=== PATIENT | male | born 1960 | race Caucasian/White ===

== ENCOUNTER 2016-12-09 07:37 | Emergency (ER) | payer SELFPAY ==
[~2016-12-09] VITALS: Ht 177.8 cm; Wt 75.0 kg
[~2016-12-09 07:37] MED LIST: OXYC-360 PO; Z.0.NO CURRENT MEDS
[2016-12-09 07:39] VITALS: BP 119/74; PULSE 77; RESP 20; TEMP 97.4; O2SAT 95
[2016-12-09] MEDS ORDERED: MEDR4PAK PO (07:53)
[2016-12-09] MEDS ORDERED: IBUP800T23 PO (07:53)
--- NOTE | 2016-12-09 07:54 | PD ---
HPI Chief Complaint: Pain: Acute or Chronic Time Seen by Provider: 07:52 Travel History International Travel<30 days: No Contact w/Intl Traveler<30days: No Traveled to known affect area: No History of Present Illness HPI 56-year-old male presents to the emergency Department with complaint of left elbow pain and swelling times one week. Denies injury. 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 Denies paresthesias, loss of sensation, decreased range of motion, decreased strength to the affected extremity. Denies fever, vomiting. Does not take any medications or tried any treatments to relieve the symptoms. Allergies to Vicodin. Has no other medical complaints. No other modifying factors or associated signs and symptoms. PFSH Past Medical History Arthritis: No Asthma: No Autoimmune Disease: No Blood Disorders: No Heart Rhythm Problems: No Cancer: No Cardiovascular Problems: No High Cholesterol: No Chemotherapy: No Chest Pain: No Congestive Heart Failure: No COPD: No Cerebrovascular Accident: Yes Diabetes: No Diminished Hearing: No Endocrine: No Gastrointestinal Disorders: Yes (BLEEDING ULCERS ) GERD: Yes Glaucoma: No Genitourinary: No Headaches: No Hepatitis: No Hiatal Hernia: No Hypertension: No Immune Disorder: No Inguinal Hernia: Yes Implanted Vascular Access Dvce: No Kidney Stones: No Musculoskeletal: No Neurologic: No Psychiatric: No Reproductive: No Respiratory: No Migraines: No Myocardial Infarction: No Radiation Therapy: No Renal Failure: No Seizures: No Sickle Cell Disease: No Sleep Apnea: No Thyroid Disease: No Ulcer: Yes Past Surgical History Abdominal Surgery: Yes (colon resection) AICD: No Appendectomy: Yes Arteriovenous Shunt: No Cholecystectomy: No Ear Surgery: No Endocrine Surgery: No Eye Surgery: No Genitourinary Surgery: Yes (COLON RESECTION ABOUT ONE YEAR AGO) Gynecologic Surgery: No Insulin Pump: No Joint Replacement: No Pacemaker: No Tonsillectomy: Yes Other Surgery: Yes (NODULES REMOVED FROM VOCAL CORDS) Social History Alcohol Use: Yes (3 beers daily) Tobacco Use: Yes (1 ppd) Substance Use: Yes (MARIJUANA) Allergies-Medications (Allergen,Severity, Reaction): Coded Allergies: Vicodin (Verified Allergy, Severe, HYPOTENSION, 12/09/16) Reported Meds & Prescriptions Reported Meds & Active Scripts Active Medrol Dosepak (Methylprednisolone) 4 Mg Dspk 4 Mg PO DIRECTED Per Pharmacist direction Ibuprofen 800 Mg Tab 800 Mg PO Q6HR PRN Review of Systems Except as stated in HPI: all other systems reviewed are Neg Physical Exam Narrative GENERAL: Well-nourished, well-developed male patient, in no acute distress; afebrile, nontoxic-appearing SKIN: Warm and dry. HEAD: Atraumatic. Normocephalic. EYES: Pupils equal and round. No scleral icterus. No injection or drainage. ENT: Mucosa pink and moist. Airway patent. NECK: Trachea midline. CARDIOVASCULAR: Regular rate. RESPIRATORY: No accessory muscle use. GASTROINTESTINAL: Flat. MUSCULOSKELETAL: Left elbow with full range of motion; with edema to the olecranon area; without erythema or warmth to touch; with tenderness on palpation; with full feeder operator automatic strength; sensory intact; 2+ radial pulse. No signs of septic joint. Left Upper extremity supple and nontense with 2+ radial pulse and sensory intact. No obvious deformities. No clubbing. No cyanosis. No edema. NEUROLOGICAL: Awake and alert. Oriented 3. No obvious cranial nerve deficits. Motor grossly within normal limits. Normal speech. PSYCHIATRIC: Appropriate mood and affect; insight and judgment normal. Data Data Last Documented VS Vital Signs Date Time Temp Pulse Resp B/P Pulse Ox O2 Delivery O2 Flow Rate FiO2 12/09/16 07:39 97.4 77 20 119/74 95 Room Air [facility] Medical Decision Making Medical Screen Exam Complete: Yes Emergency Medical Condition: Yes Medical Record Reviewed: Yes Differential Diagnosis Olecranon bursitis, contusion, elbow injury Narrative Course 56-year-old male physical examination consistent with olecranon bursitis of the left elbow. Patient is afebrile and nontoxic-appearing. Denies injury to the elbow. Denies fever, vomiting. Left upper extremity is with full range of motion. No signs of septic joint. Left elbow is without erythema or warmth to touch. Ibuprofen and Medrol Dosepak prescribed for home. Instructed patient to follow up with orthopedics. Provided patient with [employer]™ Interactive information sheet. Instructed patient to follow up with primary care provider. Patient verbalizes understanding and agreement with treatment plan. Patient is medically cleared and stable for discharge. Discussed reasons to return to the emergency department. Patient agrees with treatment plan. The patients vital signs are stable and the patient is stable for outpatient follow-up and treatment. Patient discharged home, stable and in no acute distress. Diagnosis Primary Impression: Bursitis of left elbow Qualified Code: M70.32 - Bursitis of left elbow, unspecified bursa Referrals: [facility] Orthopedist Primary Care Physician Patient Instructions: Elbow Bursitis (ED), General Instructions Additional Instructions: Ibuprofen or Tylenol as directed and as needed for pain and inflammation Apply ice to affected area Avoid elbow pressure by not leaning or placing your weight on your elbow to rise from a lying or sitting position Follow-up with primary care provider Follow-up with orthopedic Return to the emergency department immediately with worsening of symptoms Med/Other Pt SpecificInfo: Prescription(s) given Scripts Methylprednisolone Dosepak (Medrol Dosepak)4 Mg Dspk4 Mg PO DIRECTED #1 DSPK Ref 0 Per Pharmacist direction Prov:Shwetha Mccarthy 12/09/16 Ibuprofen 800 Mg [id number] Mg PO Q6HR PRN (PAIN) #30 TAB Ref 0 Prov:Shwetha Mccarthy 12/09/16 Disposition: 01 DISCHARGE HOME Condition: Stable Shwetha Mccarthy Dec 09, 2016 07:54
== END 2016-12-09 07:59 | disposition home or self-care (01) ==
LOC: NEPK 07:37
DX: M70.32 Other bursitis of elbow, left elbow (principal); K21.9 Gastro-esophageal reflux disease without esophagitis; Z87.11 Personal history of peptic ulcer disease; Z90.49 Acquired absence of other specified parts of digestive tract; F17.200 Nicotine dependence, unspecified, uncomplicated; F12.90 Cannabis use, unspecified, uncomplicated
CPT/HCPCS: 99283

== ENCOUNTER 2017-02-01 21:16 | Emergency (ER) | payer SELFPAY ==
[~2017-02-01] VITALS: Ht 177.8 cm; Wt 73.5 kg
[~2017-02-01 21:16] MED LIST changes: +IBUP800T23 PO; +MEDR4PAK PO; -OXYC-360 PO; -Z.0.NO CURRENT MEDS
[2017-02-01 21:20] VITALS: BP 158/87; PULSE 66; RESP 18; TEMP 98.2; O2SAT 100
[2017-02-01] MEDS ORDERED: ONDANSETRON HCL 4 MG/2 ML VIAL IVP ONE (23:45)
[2017-02-01] MEDS ORDERED: SODIUM CHLORIDE 0.9% FLUSH 10 ML FLUSH IV FLUSH PRN (23:45)
[2017-02-01] MEDS: SODIUM CHLOR 0.9% 1000 ML INJ 1,000 ML IV SCH (23:52)
--- NOTE | 2017-02-01 23:53 | PD ---
HPI Chief Complaint: Cold / Flu Symptoms Time Seen by Provider: 23:31 Travel History International Travel<30 days: No Contact w/Intl Traveler<30days: No Traveled to known affect area: No History of Present Illness HPI 56yo M with PMH of duodenal ulcer presents to the ED with c/o nausea and vomiting for 2 days. States he then started having burning in bilateral lower backs that is nonradiating. Said he had some brown vomit but last one was clear. Pt felt dizzy when he stands from lying down but not when he lies down. Denies any fever, chest pain, sob, abdominal pain, urinary complaints, focal weakness or numbness. PFSH Past Medical History Arthritis: No Asthma: No Autoimmune Disease: No Blood Disorders: No Heart Rhythm Problems: No Cancer: No Cardiovascular Problems: No High Cholesterol: No Chemotherapy: No Chest Pain: No Congestive Heart Failure: No COPD: No Cerebrovascular Accident: Yes Diabetes: No Diminished Hearing: No Endocrine: No Gastrointestinal Disorders: Yes (BLEEDING ULCERS ) GERD: Yes Glaucoma: No Genitourinary: No Headaches: No Hepatitis: No Hiatal Hernia: No Hypertension: No Immune Disorder: No Inguinal Hernia: Yes Implanted Vascular Access Dvce: No Kidney Stones: No Musculoskeletal: No Neurologic: No Psychiatric: No Reproductive: No Respiratory: No Migraines: No Myocardial Infarction: No Radiation Therapy: No Renal Failure: No Seizures: No Sickle Cell Disease: No Sleep Apnea: No Thyroid Disease: No Ulcer: Yes Tetanus Vaccination: Unknown Past Surgical History Abdominal Surgery: Yes (colon resection) AICD: No Appendectomy: Yes Arteriovenous Shunt: No Cholecystectomy: No Ear Surgery: No Endocrine Surgery: No Eye Surgery: No Genitourinary Surgery: Yes (COLON RESECTION ABOUT ONE YEAR AGO) Gynecologic Surgery: No Insulin Pump: No Joint Replacement: No Pacemaker: No Tonsillectomy: Yes Other Surgery: Yes (NODULES REMOVED FROM VOCAL CORDS) Social History Alcohol Use: Yes (3 beers daily) Tobacco Use: Yes (1 ppd) Substance Use: Yes (MARIJUANA) Allergies-Medications (Allergen,Severity, Reaction): Coded Allergies: acetaminophen (Unverified Allergy, Severe, HYPOTENSION, 02/01/17) hydrocodone (Unverified Allergy, Severe, HYPOTENSION, 02/01/17) Reported Meds & Prescriptions Reported Meds & Active Scripts Active Review of Systems Except as stated in HPI: all other systems reviewed are Neg Physical Exam Narrative GEN: 56yo M in mild distress. SKIN: Warm and dry. HEAD: Normocephalic, atraumatic. NECK: Trachea midline. No JVD. CV: S1, S2. Lungs: CTA B/L, equal breath sounds. Abd: soft, Very mild epigastric ttp. No rebound tenderness or guarding. BACK: No midline ttp. Mild bilateral paraspinal L5 ttp. EXT: Negative straight leg raise. No edema. Data Data Last Documented VS Vital Signs Date Time Temp Pulse Resp B/P (MAP) Pulse Ox O2 Delivery O2 Flow Rate FiO2 02/02/17 02:42 02/02/17 02:34 82 16 80 18 18 02/01/17 21:20 98.2 100 Room Air Orders Orders Complete Blood Count With Diff (02/01/17 23:38) Comprehensive Metabolic Panel (02/01/17 23:38) Lipase (02/01/17 23:38) Urinalysis - C+S If Indicated (02/01/17 23:38) Ondansetron Inj (Zofran Inj) (02/01/17 23:45) Sodium Chlor 0.9% 1000 Ml Inj (Ns 1000 M (02/01/17 23:38) Sodium Chloride 0.9% Flush (Ns Flush) (02/01/17 23:45) Chest, Single Ap (02/01/17 ) Prothrombin Time / Inr (Pt) (02/01/17 23:40) Act Partial Throm Time (Ptt) (02/01/17 23:40) Type And Screen (02/01/17 23:40) Orthostatic Vital Signs (02/01/17 23:53) Ketorolac Inj (Toradol Inj) (02/02/17 01:30) Labs Laboratory Tests Test 02/01/17 23:51 White Blood Count 10.1 TH/MM3 Red Blood Count 5.09 MIL/MM3 Hemoglobin 16.1 GM/DL Hematocrit 48.1 % Mean Corpuscular Volume 94.5 FL Mean Corpuscular Hemoglobin 31.6 PG Mean Corpuscular Hemoglobin Concent 33.4 % Red Cell Distribution Width 13.4 % Platelet Count 273 TH/MM3 Mean Platelet Volume 9.4 FL Neutrophils (%) (Auto) 87.6 % Lymphocytes (%) (Auto) 7.0 % Monocytes (%) (Auto) 5.1 % Eosinophils (%) (Auto) 0.0 % Basophils (%) (Auto) 0.3 % Neutrophils # (Auto) 8.9 TH/MM3 Lymphocytes # (Auto) 0.7 TH/MM3 Monocytes # (Auto) 0.5 TH/MM3 Eosinophils # (Auto) 0.0 TH/MM3 Basophils # (Auto) 0.0 TH/MM3 CBC Comment DIFF FINAL Differential Comment Prothrombin Time 11.4 SEC Prothromb Time International Ratio 1.0 RATIO Activated Partial Thromboplast Time 27.5 SEC Urine Color YELLOW Urine Turbidity CLEAR Urine pH 7.0 Urine Specific [place] 1.030 Urine Protein 100 mg/dL Urine Glucose (UA) NEG mg/dL Urine Ketones 150 mg/dL Urine Occult Blood NEG Urine Nitrite NEG Urine Bilirubin NEG Urine Urobilinogen 4.0 MG/DL Urine Leukocyte Esterase NEG Urine RBC 2 /hpf Urine WBC 1 /hpf Urine Squamous Epithelial Cells <1 /hpf Urine Mucus FEW /lpf Microscopic Urinalysis Comment CULT NOT INDICATED Blood Urea Nitrogen 11 MG/DL Creatinine 0.75 MG/DL Random Glucose 113 MG/DL Total Protein 7.6 GM/DL Albumin 4.0 GM/DL Calcium Level 9.2 MG/DL Alkaline Phosphatase 94 U/L Aspartate Amino Transf (AST/SGOT) 31 U/L Alanine Aminotransferase (ALT/SGPT) 51 U/L Total Bilirubin 0.6 MG/DL Sodium Level 138 MEQ/L Potassium Level 3.4 MEQ/L Chloride Level 103 MEQ/L Carbon Dioxide Level 26.1 MEQ/L Anion Gap 9 MEQ/L Estimat Glomerular Filtration Rate 109 ML/MIN Lipase 86 U/L [facility] Medical Decision Making Medical Screen Exam Complete: Yes Emergency Medical Condition: Yes Differential Diagnosis Peptic ulcer disease vs. electrolyte abnormality vs. dehydration Narrative Course 56yo M with duodenal ulcer here with nausea and vomiting. CXR showed no acute disease. No free air. Sign out to PA to follow up labs, orthostatic and reevaluate after zofran, CANDICE IVF. Diagnosis Primary Impression: Vomiting Qualified Codes: R11.2 - Nausea with vomiting, unspecified Mayr Curtis DO Feb 01, 2017 23:53
--- NOTE | 2017-02-02 00:39 | RADRPT ---
EXAM DATE/TIME: 02/01/2017 23:36 [place] COMPARISON: CHEST SINGLE AP, July 30, 2009, 23:33. INDICATIONS : Shortness of breath. MEDICAL HISTORY : None. SURGICAL HISTORY : None. ENCOUNTER: Initial ACUITY: 2 days PAIN SCORE: 0/10 LOCATION: Bilateral chest FINDINGS: A single view of the chest demonstrates the lungs to be symmetrically aerated without evidence of mas s, infiltrate or effusion. The cardiomediastinal contours are unremarkable. Osseous structures are intact. CONCLUSION: No acute disease. No significant change has occurred. Melvin Lewis MD on February 02, 2017 at 0:37 Board Certified Radiologist. This report was verified electronically.
[2017-02-02] MEDS ORDERED: KETOROLAC TROMETHAMINE 30 MG/ML (IVP) VIAL IV PUSH ONE (01:30)
[2017-02-02 01:32] LABS: AUTOMATED NEUTROPHIL # 8.9 TH/MM3 (1.8-7.7); BASOPHIL % 0.3 % (0.0-2.0); HEMATOCRIT 48.1 % (39.0-51.0); HEMO FLAGS DIFF FINAL; LYMPHOCYTE # 0.7 TH/MM3 (1.0-4.8); MEAN CELL VOLUME 94.5 FL (80.0-100.0); MEAN CORPUSCULAR HEMOGLOBIN 31.6 PG (27.0-34.0); MEAN CORPUSCULAR HGB CONC 33.4 % (32.0-36.0); MONO % 5.1 % (0.0-8.0); NEUT % 87.6 % (16.0-70.0); PLATELET COUNT 273 TH/MM3 (150-450); RED BLOOD COUNT 5.09 MIL/MM3 (4.50-5.90); RED CELL DISTRIBUTION WIDTH 13.4 % (11.6-17.2); WHITE BLOOD COUNT 10.1 TH/MM3 (4.0-11.0)
[2017-02-02 01:37] LABS: BLOOD, URINE NEG (NEG); COMMENT (UR) CULT NOT INDICATED; CULTURE IF INDICATED CULT NOT INDICATED; GLUCOSE,URINE NEG (NEG); KETONE, URINE 150 mg/dL (NEG); MUCUS URINE FEW /lpf (OCC); NITRITE,URINE NEG (NEG); SQUAMOUS EPITHELIAL CELL URINE <1 /hpf (0-5); URINE COLOR YELLOW (YELLW/STRAW)
[2017-02-02 01:47] LABS: ALT (GPT) 51 U/L (12-78); ANION GAP 9 MEQ/L (5-15); AST (GOT) 31 U/L (15-37); BICARBONATE 26.1 MEQ/L (21.0-32.0); BLOOD UREA NITROGEN 11 MG/DL (7-18); CHLORIDE 103 MEQ/L (98-107); GLOMERULAR FILTRATION RATE 109 ML/MIN (>89); POTASSIUM 3.4 MEQ/L (3.5-5.1); SODIUM (NA) 138 MEQ/L (136-145)
[2017-02-02 01:48] LABS: APTT (PATIENT) 27.5 SEC (24.3-30.1); PROTHROMBIN TIME - PATIENT 11.4 SEC (9.8-11.6)
[2017-02-02 01:49] LABS: ALKALINE PHOSPHATASE 94 U/L (45-117); TOTAL BILIRUBIN ADULT 0.6 MG/DL (0.2-1.0)
[2017-02-02] MEDS: SODIUM CHLOR 0.9% 1000 ML INJ 1,000 ML IV SCH (01:52)
--- NOTE | 2017-02-02 02:32 | PD ---
Physical Exam Time Seen by Provider: 02:30 Narrative Please refer to previous providers documentation for detailed surrounding the patient's current visit. Data Data Last Documented VS Vital Signs Date Time Temp Pulse Resp B/P (MAP) Pulse Ox O2 Delivery O2 Flow Rate FiO2 02/02/17 02:42 02/02/17 02:34 82 16 80 18 18 02/01/17 21:20 98.2 100 Room Air Orders Orders Complete Blood Count With Diff (02/01/17 23:38) Comprehensive Metabolic Panel (02/01/17 23:38) Lipase (02/01/17 23:38) Urinalysis - C+S If Indicated (02/01/17 23:38) Ondansetron Inj (Zofran Inj) (02/01/17 23:45) Sodium Chlor 0.9% 1000 Ml Inj (Ns 1000 M (02/01/17 23:38) Sodium Chloride 0.9% Flush (Ns Flush) (02/01/17 23:45) Chest, Single Ap (02/01/17 ) Prothrombin Time / Inr (Pt) (02/01/17 23:40) Act Partial Throm Time (Ptt) (02/01/17 23:40) Type And Screen (02/01/17 23:40) Orthostatic Vital Signs (02/01/17 23:53) Ketorolac Inj (Toradol Inj) (02/02/17 01:30) Labs Laboratory Tests Test 02/01/17 23:51 White Blood Count 10.1 TH/MM3 Red Blood Count 5.09 MIL/MM3 Hemoglobin 16.1 GM/DL Hematocrit 48.1 % Mean Corpuscular Volume 94.5 FL Mean Corpuscular Hemoglobin 31.6 PG Mean Corpuscular Hemoglobin Concent 33.4 % Red Cell Distribution Width 13.4 % Platelet Count 273 TH/MM3 Mean Platelet Volume 9.4 FL Neutrophils (%) (Auto) 87.6 % Lymphocytes (%) (Auto) 7.0 % Monocytes (%) (Auto) 5.1 % Eosinophils (%) (Auto) 0.0 % Basophils (%) (Auto) 0.3 % Neutrophils # (Auto) 8.9 TH/MM3 Lymphocytes # (Auto) 0.7 TH/MM3 Monocytes # (Auto) 0.5 TH/MM3 Eosinophils # (Auto) 0.0 TH/MM3 Basophils # (Auto) 0.0 TH/MM3 CBC Comment DIFF FINAL Differential Comment Prothrombin Time 11.4 SEC Prothromb Time International Ratio 1.0 RATIO Activated Partial Thromboplast Time 27.5 SEC Urine Color YELLOW Urine Turbidity CLEAR Urine pH 7.0 Urine Specific [place] 1.030 Urine Protein 100 mg/dL Urine Glucose (UA) NEG mg/dL Urine Ketones 150 mg/dL Urine Occult Blood NEG Urine Nitrite NEG Urine Bilirubin NEG Urine Urobilinogen 4.0 MG/DL Urine Leukocyte Esterase NEG Urine RBC 2 /hpf Urine WBC 1 /hpf Urine Squamous Epithelial Cells <1 /hpf Urine Mucus FEW /lpf Microscopic Urinalysis Comment CULT NOT INDICATED Blood Urea Nitrogen 11 MG/DL Creatinine 0.75 MG/DL Random Glucose 113 MG/DL Total Protein 7.6 GM/DL Albumin 4.0 GM/DL Calcium Level 9.2 MG/DL Alkaline Phosphatase 94 U/L Aspartate Amino Transf (AST/SGOT) 31 U/L Alanine Aminotransferase (ALT/SGPT) 51 U/L Total Bilirubin 0.6 MG/DL Sodium Level 138 MEQ/L Potassium Level 3.4 MEQ/L Chloride Level 103 MEQ/L Carbon Dioxide Level 26.1 MEQ/L Anion Gap 9 MEQ/L Estimat Glomerular Filtration Rate 109 ML/MIN Lipase 86 U/L [facility] Medical Record Reviewed: Yes Supervised Visit with RENAN: No Narrative Course Patient was signed out to me with lab work pending. Results without acute concern. Patient will be discharged home at this time. He is counseled on care and agrees to return immediately with any acute worsening of symptoms. Diagnosis Primary Impression: Viral syndrome Additional Impression: Gastritis Qualified Codes: K29.70 - Gastritis, unspecified, without bleeding Referrals: Primary Care Physician Patient Instructions: Acute Nausea and Vomiting (ED), General Instructions Additional Instruction: Follow-up with a primary care provider Maintain adequate oral hydration Return immediately with any acute worsening of symptoms Med/Other Pt SpecificInfo: No Change to Meds Disposition: 01 DISCHARGE HOME Condition: Stable BelgicaCarolyne TURCIOS Feb 02, 2017 02:32
[2017-02-02 02:34] VITALS: BP_SYST 144; BP_SYST 145; BP_SYST 149; BP_DIAS 79; BP_DIAS 87; BP_DIAS 88; RESP 16; RESP 18
== END 2017-02-02 02:47 | disposition home or self-care (01) ==
LOC: NEPD 21:16
DX: B34.9 Viral infection, unspecified (principal); K29.70 Gastritis, unspecified, without bleeding; K21.9 Gastro-esophageal reflux disease without esophagitis; Z87.11 Personal history of peptic ulcer disease; Z86.73 Personal history of transient ischemic attack (TIA), and cerebral infarction without residual deficits
CPT/HCPCS: 71010; 80053; 81001; 83690; 85025; 85610; 85730; 86850; 86900; 86901; 96374; 99284; J1885; J2405; J7030

== ENCOUNTER 2018-04-15 09:47 | Inpatient (IN) ==
[2018-04-15] MEDS ORDERED: Famotidine PF Inj 20 MG/2 ML Vial IV.PUSH ONE (09:57)
[2018-04-15] MEDS ORDERED: Sod Chloride 0.9% Inj 1,000 ML IV.SIG ONE (09:57)
[2018-04-15] MEDS ORDERED: Pantoprazole Inj 80 MG in Sodium Chlor 0.9% Inj 100 ML IV.CONT SCH (10:00)
--- NOTE | 2018-04-15 10:25 | ED ---
HPI General Chief complaint: GI Bleed Stated complaint: GI Time Seen by Provider: 04/15/18 09:56 Source: patient Mode of arrival: ambulatory Limitations: no limitations History of Present Illness HPI Narrative: Patient is a 58-year-old male, past medical history significant for previous ulcer disease with multiple bowel resections secondary to ulcer perforation, who presents with complaint of dark stools for the last 5 days with one episode of blood-streaked emesis yesterday. He had not had any previous episodes of emesis and has not had any since. He denies any abdominal pain, fever. He has generalized weakness but no focal weakness. No numbness. He does have chills as well. EMS reports that blood pressure remained in the 100s and heart rate was approximately 105 while en route. MD complaint: Reports gross hematemesis and melena Onset (ago): day(s) Pain Consistency: constant Relieving factors: none Exacerbating factors: none Context: Reports history of GI bleed Associated symptoms: Reports nausea and vomiting Treatments Prior to Arrival: Reports none Related Data Home Medications Medication Instructions Recorded Confirmed No Known Home Medications 04/15/18 04/15/18 Allergies Allergy/AdvReac Type Severity Reaction Status Date / Time acetaminophen Allergy Hypotension Verified 04/15/18 11:30 hydrocodone Allergy Hypotension Verified 04/15/18 11:30 Review of Systems ROS: all other systems reviewed are negative [facility] Medical History Medical History Blood in stool (Acute) Gastric ulcer (Acute) Surgical History Surgical History History of bowel resection (Acute) Social History Social History Substance History: No History of Abuse Smoking Status: Current every day smoker Tobacco Type: Cigarettes How Often Do You Have a Drink Containing Alcohol: Never Recent Travel in [facility] within the Last 8 Weeks: No Recent Out of Country Travel within the Last 8 Weeks: No Immunization History Tetanus Immunization: <5 Years Exam Narrative Exam Narrative: GENERAL: Ill, pale-appearing male in no acute distress SKIN: Focused skin assessment warm/dry. Pale HEAD: Atraumatic. Normocephalic. EYES: Pupils equal and round. No scleral icterus. No injection or drainage. Pale conjunctiva. ENT: No nasal bleeding or discharge. Mucous membranes pink and moist. NECK: Trachea midline. No JVD. CARDIOVASCULAR: Regular rate and rhythm. No murmur appreciated. Intact and equal peripheral pulses. RESPIRATORY: No accessory muscle use. Clear to auscultation. Breath sounds equal bilaterally. GASTROINTESTINAL: Abdomen soft, non-tender, nondistended. Hepatic and splenic margins not palpable. MUSCULOSKELETAL: No obvious deformities. No clubbing. No cyanosis. No edema. NEUROLOGICAL: Awake and alert. No obvious cranial nerve deficits. Motor within normal limits. Normal sensation. Normal speech. PSYCHIATRIC: Appropriate mood and affect; insight and judgment normal. Course Initial Documented Vital Signs Temperature 98.1 F 04/15/18 09:53 Pulse Rate 104 H 04/15/18 09:53 Respiratory Rate 22 04/15/18 09:53 Blood Pressure 135/98 H 04/15/18 09:53 Pulse Oximetry 100 04/15/18 09:53 Last Documented Vital Signs Temperature 98.1 F 04/15/18 09:53 Pulse Rate 92 H 04/15/18 10:16 Respiratory Rate 22 04/15/18 09:53 Blood Pressure 135/98 H 04/15/18 09:53 Pulse Oximetry 99 04/15/18 10:17 Medical Decision Making MDM Narrative Medical decision making narrative: Patient is a 58-year-old male who presents with complaint of several days of dark stools with one episode of hematemesis yesterday. He appears ill and pale but has been hemodynamically stable while in the emergency department. Rectal exam revealed melena. Hemoglobin is 11 which is decreased from his baseline of 16. He has been started on a Protonix drip and continues to deny pain. I spoke with Dr. House, scientific artist on- call, who agreed to the consult. I then spoke to Dr. Mendosa, hospitalist on- call, who agreed to the admission. Medical Screen Exam Complete: Yes Emergency Medical Condition: Yes Differential Diagnosis Differential Diagnosis: Differential diagnosis includes but is not limited to acute GI bleed, anemia, peptic ulcer disease, cirrhosis. Medical Records Medical records reviewed: Yes I reviewed the patient's medical records. Lab Data Lab results reviewed: Yes I reviewed the patient's lab results. Result diagrams: 04/15/18 10:18 04/15/18 10:18 Lab Results 04/15/18 04/15/18 04/15/18 Range/Units 10:18 10:18 10:18 WBC 11.6 H (4.0-11.0) th/mm3 RBC 3.25 L (4.50-5.90) mil/mm3 Hgb 11.2 L (13.0-17.0) gm/dL Hct 32.8 L (39.0-51.0) % MCV 100.8 H (80.0-100.0) fL MCH 34.3 H (27.0-34.0) pg MCHC 34.1 (32.0-36.0) % RDW 13.3 (11.6-17.2) % Plt Count 246 (150-450) th/mm3 MPV 9.2 (7.0-11.0) fL Neut % (Auto) 80.0 H (16.0-70.0) % Lymph % (Auto) 13.1 (9.0-44.0) % [place] % (Auto) 5.7 (0.0-8.0) % Eos % (Auto) 0.8 (0.0-4.0) % Baso % (Auto) 0.4 (0.0-2.0) % Neut # (Auto) 9.3 H (1.8-7.7) th/mm3 Lymph # (Auto) 1.5 (1.0-4.8) th/mm3 [place] # (Auto) 0.7 (0.0-0.9) th/mm3 Eos # (Auto) 0.1 (0.0-0.4) th/mm3 Baso # (Auto) 0.1 (0.0-0.2) th/mm3 WBC Differential . Differential Comment Auto diff final PT 11.1 (9.8-11.6) sec INR 1.1 Ratio APTT 24.4 (23.4-31.7) sec Sodium 135 L (136-145) meq/L Potassium 5.1 (3.5-5.1) meq/L Chloride 104 (98-107) meq/L Carbon Dioxide 23.6 (21.0-32.0) meq/L Anion Gap 7 (5-15) meq/L BUN 46 H (7-18) mg/dL Creatinine 1.01 (0.60-1.30) mg/dL Estimated GFR 76 L (>89) mL/min Random Glucose 110 H (74-106) mg/dL Calcium 8.0 L (8.5-10.1) mg/dL Total Bilirubin 0.6 (0.2-1.0) mg/dL AST 55 H (15-37) U/L ALT 53 (12-78) U/L Alkaline Phosphatase 79 (45-117) U/L Troponin I Less than 0.02 L (0.02-0.05) ng/mL Total Protein 6.6 (6.4-8.2) g/dL Albumin 3.3 L (3.4-5.0) g/dL Blood Type Antibody Screen 04/15/18 Range/Units 10:18 WBC (4.0-11.0) th/mm3 RBC (4.50-5.90) mil/mm3 Hgb (13.0-17.0) gm/dL Hct (39.0-51.0) % MCV (80.0-100.0) fL MCH (27.0-34.0) pg MCHC (32.0-36.0) % RDW (11.6-17.2) % Plt Count (150-450) th/mm3 MPV (7.0-11.0) fL Neut % (Auto) (16.0-70.0) % Lymph % (Auto) (9.0-44.0) % [place] % (Auto) (0.0-8.0) % Eos % (Auto) (0.0-4.0) % Baso % (Auto) (0.0-2.0) % Neut # (Auto) (1.8-7.7) th/mm3 Lymph # (Auto) (1.0-4.8) th/mm3 [place] # (Auto) (0.0-0.9) th/mm3 Eos # (Auto) (0.0-0.4) th/mm3 Baso # (Auto) (0.0-0.2) th/mm3 WBC Differential Differential Comment PT (9.8-11.6) sec INR Ratio APTT (23.4-31.7) sec Sodium (136-145) meq/L Potassium (3.5-5.1) meq/L Chloride (98-107) meq/L Carbon Dioxide (21.0-32.0) meq/L Anion Gap (5-15) meq/L BUN (7-18) mg/dL Creatinine (0.60-1.30) mg/dL Estimated GFR (>89) mL/min Random Glucose (74-106) mg/dL Calcium (8.5-10.1) mg/dL Total Bilirubin (0.2-1.0) mg/dL AST (15-37) U/L ALT (12-78) U/L Alkaline Phosphatase (45-117) U/L Troponin I (0.02-0.05) ng/mL Total Protein (6.4-8.2) g/dL Albumin (3.4-5.0) g/dL Blood Type O Positive Antibody Screen Negative Discharge Plan Discharge Disposition Patient Disposition: ED Admit(ED Internal Use Only) Discharge Condition Condition: Fair Discharge Order Discharge Orders: ED Use Only Admit Order (Routine); Ordered 04/15/18 Ordered By: Ellie Carr Discharge Details Diagnosis: Acute blood loss anemia, Acute GI bleeding Physicians Team ED Provider: Ellie Carr Primary Care Provider: [facility] [place],Olamide Attending Provider: Miguel Torres Other Providers: Josselyn House Status ED Status: Admitted Patient
[2018-04-15 10:30] LABS: Baso # (Auto) 0.1 th/mm3 (0.0-0.2); Baso % (Auto) 0.4 % (0.0-2.0); Eos # (Auto) 0.1 th/mm3 (0.0-0.4); Eos % (Auto) 0.8 % (0.0-4.0); Hematocrit 32.8 % (39.0-51.0); Hemoglobin 11.2 gm/dL (13.0-17.0); Lymph # (Auto) 1.5 th/mm3 (1.0-4.8); Lymph % (Auto) 13.1 % (9.0-44.0); Mean Corpuscular HGB Conc 34.1 % (32.0-36.0); Mean Corpuscular Hemoglobin 34.3 pg (27.0-34.0); Mean Corpuscular Volume 100.8 fL (80.0-100.0); Mean Platelet Volume 9.2 fL (7.0-11.0); Mono # (Auto) 0.7 th/mm3 (0.0-0.9); Mono % (Auto) 5.7 % (0.0-8.0); Neut # (Auto) 9.3 th/mm3 (1.8-7.7); Platelet Count 246 th/mm3 (150-450); Red Blood Count 3.25 mil/mm3 (4.50-5.90); Red Cell Distribution Width 13.3 % (11.6-17.2); White Blood Count 11.6 th/mm3 (4.0-11.0)
[2018-04-15 10:41] LABS: Activated Partial Thrombo Time 24.4 sec (23.4-31.7); INR 1.1 Ratio; Prothrombin Time 11.1 sec (9.8-11.6)
[2018-04-15 10:49] LABS: Alkaline Phosphatase 79 U/L (45-117); Total Protein 6.6 g/dL (6.4-8.2)
[2018-04-15 10:52] LABS: Alanine Aminotransferase 53 U/L (12-78); Albumin 3.3 g/dL (3.4-5.0); Anion Gap 7 meq/L (5-15); Aspartate Aminotransferase 55 U/L (15-37); Blood Urea Nitrogen 46 mg/dL (7-18); Carbon Dioxide 23.6 meq/L (21.0-32.0); Chloride 104 meq/L (98-107); Glomerular Filtration Rate 76 mL/min (>89); Glucose,Random 110 mg/dL (74-106); Potassium 5.1 meq/L (3.5-5.1); Sodium 135 meq/L (136-145)
--- NOTE | 2018-04-15 11:44 | P.CONGI ---
History of Present Illness Consult date: 04/15/18 Consult reason: GI bleed, melena stools Chief complaint: Acute GI Bleed History of Present Illness: 58-year-old slim male presented to the hospital on 04/15/2018 with melena stools times 5 days and according to the record one episode of blood-streaked emesis yesterday currently patient denies any nausea or vomiting or abdominal pain no hematemesis and no current bright red rectal bleeding patient denies any use of NSAIDs and takes no blood thinners. According to the patient in the record patient had bowel resections x2 last one 7 years ago secondary to ulcer perforation. Patient states that he had been doing well and in his usual state of health up until this past week. Labs reviewed which showed hemoglobin 11.2, WBC count 11.6, PT/INR 1.1, bilirubin 0.6, AST 55, ALT 53, no EGD or colonoscopy within the past 7 years. Patient notes unknown family history of any colon cancer as he is adopted. Gastroenterology was consulted to assist with patient's possible GI bleeding and plan of care. Currently patient is n.p.o. and plan is for EGD today PMFSH - History History Provided By: Patient - Medical History Medical History: Medical History (Last Reviewed 04/15/18 @ 10:23 by Ellie Carr MD) Blood in stool Gastric ulcer - Surgical History Surgical History: Surgical History (Last Reviewed 04/15/18 @ 10:23 by Ellie Carr MD) History of bowel resection - Tobacco History Tobacco Use In Past 30 Days: Yes Smoking Status: Current every day smoker Tobacco Type: Cigarettes - Alcohol History How Often Do You Have a Drink Containing Alcohol: Never - Substance Use History Substance History: No History of Abuse - Travel History Recent Travel in the [place] Within the Last 8 Weeks: No Recent Travel Out of the Country Within the Last 8 Weeks: No - Immunization History Tetanus Immunization: <5 Years Medications and Allergies Active Medications: Active Medications Pantoprazole Sodium 80 mg/ (Sodium Chloride) 100 mls @ 10 mls/hr IV.CONT CONT RUSLAN Last Admin: 04/15/18 10:43 Dose: 10 mls/hr Sodium Chloride (Ns Flush) 2 ml IV.FLUSH PRN PRN PRN Reason: FLUSH AFTER USING IV ACCESS Last Admin: 04/15/18 10:27 Dose: 2 ml Allergies Allergy/AdvReac Type Severity Reaction Status Date / Time acetaminophen Allergy Hypotension Verified 04/15/18 11:30 hydrocodone Allergy Hypotension Verified 04/15/18 11:30 Home Medications Medication Instructions Recorded Confirmed Type No Known Home Medications 04/15/18 04/15/18 History Exam Vital signs: Vital Signs 04/15/18 09:53 04/15/18 10:16 04/15/18 10:17 Temperature 98.1 F Pulse Rate 104 H 92 H Respiratory Rate 22 Blood Pressure 135/98 H Pulse Oximetry 100 99 Intake & Output 04/14/18 04/15/18 04/15/18 18:59 06:59 18:59 Intake Total 1000 / 1000 Balance 1000 / 1000 Weight 72.575 kg Intake: IV 1000 / 1000 NS Inj 1,000 ML @ Wide Open IV. 1000 / 1000 SIG BOLUS ONE Rx#:[id number] Results - Labs CBC & Chem 7: 04/15/18 10:18 04/15/18 10:18 Labs: Laboratory Results - last 24 hr 04/15/18 04/15/18 04/15/18 10:18 10:18 10:18 WBC 11.6 H RBC 3.25 L Hgb 11.2 L Hct 32.8 L MCV 100.8 H MCH 34.3 H MCHC 34.1 RDW 13.3 Plt Count 246 MPV 9.2 Neut % (Auto) 80.0 H Lymph % (Auto) 13.1 Brooke % (Auto) 5.7 Eos % (Auto) 0.8 Baso % (Auto) 0.4 Neut # (Auto) 9.3 H Lymph # (Auto) 1.5 Brooke # (Auto) 0.7 Eos # (Auto) 0.1 Baso # (Auto) 0.1 WBC Differential . Differential Comment Auto diff final PT 11.1 INR 1.1 APTT 24.4 Sodium 135 L Potassium 5.1 Chloride 104 Carbon Dioxide 23.6 Anion Gap 7 BUN 46 H Creatinine 1.01 Estimated GFR 76 L Random Glucose 110 H Calcium 8.0 L Total Bilirubin 0.6 AST 55 H ALT 53 Alkaline Phosphatase 79 Troponin I Less than 0.02 L Total Protein 6.6 Albumin 3.3 L Blood Type Antibody Screen 04/15/18 10:18 WBC RBC Hgb Hct MCV MCH MCHC RDW Plt Count MPV Neut % (Auto) Lymph % (Auto) Brooke % (Auto) Eos % (Auto) Baso % (Auto) Neut # (Auto) Lymph # (Auto) [place] # (Auto) Eos # (Auto) Baso # (Auto) WBC Differential Differential Comment PT INR APTT Sodium Potassium Chloride Carbon Dioxide Anion Gap BUN Creatinine Estimated GFR Random Glucose Calcium Total Bilirubin AST ALT Alkaline Phosphatase Troponin I Total Protein Albumin Blood Type O Positive Antibody Screen Negative Assessment and Plan - Plan 58-year-old slim male presented to the hospital on 04/15/2018 with melena stools times 5 days and according to the record one episode of blood-streaked emesis yesterday currently patient denies any nausea or vomiting or abdominal pain no hematemesis and no current bright red rectal bleeding patient denies any use of NSAIDs and takes no blood thinners. According to the patient in the record patient had bowel resections x2 last one 7 years ago secondary to ulcer perforation. Patient states that he had been doing well and in his usual state of health up until this past week. Labs reviewed which showed hemoglobin 11.2, WBC count 11.6, PT/INR 1.1, bilirubin 0.6, AST 55, ALT 53, no EGD or colonoscopy within the past 7 years. Patient notes unknown family history of any colon cancer as he is adopted. Gastroenterology was consulted to assist with patient's possible GI bleeding and plan of care. Currently patient is n.p.o. and plan is for EGD today Melena stools probably secondary to upper GI bleed History of ulcer and perforation with multiple bowel resections x2 approximately 7 years ago. Patient denies any NSAID use no fever, no chills Plan N.p.o. Consent for EGD Monitor labs with any obvious bleeding, monitor hemoglobin Bowel regimen as needed Further recommendations to follow Patient has been seen per myself and Dr. House, note was written on her behalf
--- NOTE | 2018-04-15 12:09 | P.HPIM ---
History of Present Illness Primary Care Physician: No Primary Care Physician Chief Complaint: GI bleed History of Present Illness: patient is a 58 y/o male with history of PUD- s/p bowel resection a few years ago presented to ER with GI bleed. he says that the past few days he had multiple loose black stools. earlier this morning he vomited blood which made him come to ER. he denies any abdominal pain. he denies any chest pain or sob but he says that he feels dizzy when he's sitting up. Inpatient Certification: I certify that the inpatient services were ordered in accordance with Medicare regulations governing the order. This includes certification that hospital inpatient services are reasonable and necessary and in the case of services not specified as inpatient-only under 42 CFR 419.22(n), that they are appropriately provided as inpatient services in accordance to with the 2-midnight benchmark under 43 CFR 412.3(e) Review of Systems All other systems reviewed negative except as stated in HPI PMFSH - History History Provided By: Patient - Medical History Medical History: Medical History (Last Reviewed 04/15/18 @ 12:07 by Miguel Torres MD) Blood in stool Gastric ulcer - Surgical History Surgical History: Surgical History (Last Reviewed 04/15/18 @ 12:07 by Miguel Torres MD) History of bowel resection - Family History Family History: Family History (Last Updated 04/15/18 @ 12:07 by Miguel Torres MD) Other Family history unknown - Tobacco History Tobacco Use In Past 30 Days: Yes Smoking Status: Current every day smoker Tobacco Type: Cigarettes - Alcohol History How Often Do You Have a Drink Containing Alcohol: Never - Substance Use History Substance History: No History of Abuse - Travel History Recent Travel in the [facility] Within the Last 8 Weeks: No Recent Travel Out of the Country Within the Last 8 Weeks: No - Immunization History Tetanus Immunization: <5 Years Medications and Allergies Active Medications: Active Medications Pantoprazole Sodium 80 mg/ (Sodium Chloride) 100 mls @ 10 mls/hr IV.CONT CONT RUSLAN Last Admin: 04/15/18 10:43 Dose: 10 mls/hr Sodium Chloride (Ns Flush) 2 ml IV.FLUSH PRN PRN PRN Reason: FLUSH AFTER USING IV ACCESS Last Admin: 04/15/18 10:27 Dose: 2 ml Allergies Allergy/AdvReac Type Severity Reaction Status Date / Time acetaminophen Allergy Hypotension Verified 04/15/18 11:30 hydrocodone Allergy Hypotension Verified 04/15/18 11:30 Home Medications Medication Instructions Recorded Confirmed Type No Known Home Medications 04/15/18 04/15/18 History Exam Vital signs: Vital Signs 04/15/18 09:53 04/15/18 10:16 04/15/18 10:17 Temperature 98.1 F Pulse Rate 104 H 92 H Respiratory Rate 22 Blood Pressure 135/98 H Pulse Oximetry 100 99 Intake & Output 04/14/18 04/15/18 04/15/18 18:59 06:59 18:59 Intake Total 1000 / 1000 Balance 1000 / 1000 Weight 72.575 kg Intake: IV 1000 / 1000 NS Inj 1,000 ML @ Wide Open IV. 1000 / 1000 SIG BOLUS ONE Rx#:[id number] - Constitutional no acute distress - Routine HEENT Exam Comments: pale conjunctivae. - Routine Neck Exam Present: supple - Routine Respiratory Exam Present: CTA bilaterally - Routine Cardiovascular Exam Present: RRR - Routine Abdominal Exam Present: soft - Routine Extremities Exam Comments: no pedal edema. - Routine Neurological Exam Present: alert, oriented X3 Results - Labs CBC & Chem 7: 04/15/18 10:18 04/15/18 10:18 Labs: Short CBC 04/15/18 Range/Units 10:18 WBC 11.6 H (4.0-11.0) th/mm3 Hgb 11.2 L (13.0-17.0) gm/dL Hct 32.8 L (39.0-51.0) % Plt Count 246 (150-450) th/mm3 BMP 04/15/18 10:18 Sodium 135 L Potassium 5.1 Chloride 104 Carbon Dioxide 23.6 BUN 46 H Creatinine 1.01 Calcium 8.0 L Cardiac Enzymes 04/15/18 Range/Units 10:18 Troponin I Less than 0.02 L (0.02-0.05) ng/mL Liver Function 04/15/18 Range/Units 10:18 Total Bilirubin 0.6 (0.2-1.0) mg/dL AST 55 H (15-37) U/L ALT 53 (12-78) U/L Alkaline Phosphatase 79 (45-117) U/L Albumin 3.3 L (3.4-5.0) g/dL Caprini VTE Risk Assessment Caprini VTE Risk Assessment: No/Low Risk (score <= 1) VTE Pharmacological Exception Reason: Active bleeding Caprini Risk Assessment Model: Point Value = 1 Point Value = 2 Point Value = 3 Point Value = 5 Age 41-60 Minor surgery BMI > 25 kg/m2 Swollen legs Varicose veins or History of unexplained or recurrent spontaneous Oral contraceptives or hormone replacement Sepsis (< 1 month) Serious lung disease, including pneumonia (< 1 month) Abnormal pulmonary function Acute myocardial infarction Congestive heart failure (< 1 month) History of inflammatory bowel disease Medical patient at bed rest Age 61-74 Arthroscopic surgery Major open surgery (> 45 min) Laparoscopic surgery (> 45 min) Malignancy Confined to bed (> 72 hours) Immobilizing plaster cast Central venous access Age >= 75 History of VTE Family history of VTE Factor V Leiden Prothrombin [id number] Lupus anticoagulant Anticardiolipin antibodies Elevated serum homocysteine Heparin-induced thrombocytopenia Other congenital or acquired thrombophilia Stroke (< 1 month) Elective arthroplasty Hip, pelvis, or leg fracture Acute spinal cord injury (< 1 month) Prophylaxis Regimen: Total Risk Factor Score Risk Level Prophylaxis Regimen 0-1 Low Early ambulation 2 Moderate Order ONE of the following: *Sequential Compression Device (SCD) *Heparin 5000 units SQ BID 3-4 Higher Order ONE of the following medications: *Heparin 5000 units SQ TID *Enoxaparin/Lovenox 40 mg SQ daily (WT < 150 kg, CrCl > 30 mL/min) *Enoxaparin/Lovenox 30 mg SQ daily (WT < 150 kg, CrCl > 10-29 mL/min) *Enoxaparin/Lovenox 30 mg SQ BID (WT < 150 kg, CrCl > 30 mL/min) AND/OR *Sequential Compression Device (SCD) 5 or more Highest Order ONE of the following medications: *Heparin 5000 units SQ TID (Preferred with Epidurals) *Enoxaparin/Lovenox 40 mg SQ daily (WT < 150 kg, CrCl > 30 mL/min) *Enoxaparin/Lovenox 30 mg SQ daily (WT < 150 kg, CrCl > 10-29 mL/min) *Enoxaparin/Lovenox 30 mg SQ BID (WT < 150 kg, CrCl > 30 mL/min) AND *Sequential Compression Device (SCD) Assessment and Plan - Plan A/P - GI bleed with history of PUD; keep NPO- continue PPI- close monitoring of H/H and transfuse as needed. GI consulted. Discussed Condition With: ER physician and the patient. Discharge Planning: home when stable- pending GI work-up.
[2018-04-15] MEDS ORDERED: Diatrizoate Meglum/Diatrizoate Sod Liq 9 ML UDC PO ONE (12:54)
--- NOTE | 2018-04-15 13:11 | GIPROC ---
[facility] [address] [facility]. [facility], [address] EGD PROCEDURE REPORT EXAM DATE: 04/15/2018 PATIENT NAME: Mauro Anthony MR #: [id number] BIRTHDATE: 1960 ATTENDING: Josselyn House MD ORDER #: [id number] BUMP GRADER OPERATOR: Vitaliy Melendez and Leona Barros STATUS: outpatient INDICATIONS: The patient is a 58 yr old male here for an EGD due to anemia gi bleeding history of pud PROCEDURE PERFORMED: EGD w/ biopsy MEDICATIONS: Per Anesthesia and None. TOPICAL ANESTHETIC: none CONSENT: The patient understands the risks and benefits of the procedure and understands that these risks include, but are not limited to: sedation, allergic reaction, infection, perforation and/or bleeding. Alternative means of evaluation and treatment include, among others: physical exam, x-rays, and/or surgical intervention. The patient elects to proceed with this endoscopic procedure. medical equipment was checked for proper function. Hand hygiene and appropriate measures for infection prevention was taken. After the risks, benefits and alternatives of the procedure were thoroughly explained, Informed consent was verified, confirmed and timeout was successfully executed by the treatment team. The patient was anesthetized with topical anesthesia and the Pentax [id number] endoscope was introduced through the mouth and advanced to the second portion of the duodenum. Retroflexed views revealed a hiatal hernia The gastroscope was then slowly withdrawn and removed. Surgical changes involving duodenum and stomach multiple clean base ulcers in duodenum second portion -three, one had a vissible vessel, possible source of bleeding -s/p cautery using balltip , epinephrine injected 1:10.000 - 2 cc, 3 clips applied - deployment malfunctioned -not attached to ulcer site no active bleeding gastritis antrum-biopsy. Gastritis antrum-biopsy. ADVERSE EVENTS: There were no complications. IMPRESSIONS: 1. Surgical changes involving duodenum and stomach multiple clean base ulcers in duodenum second portion -three, one had a vissible vessel, possible source of bleeding -s/p cautery using balltip , epinephrine injected 1:10.000 - 2 cc, 3 clips applied - deployment malfunctioned -not attached to ulcer site no active bleeding gastritis antrum-biopsy 2. Retroflexed views revealed a hiatal hernia RECOMMENDATIONS: 1. Await biopsy results. Biopsy results will not be ready for 7-10 days. If you don't hear from us in two weeks, call our office for biopsy results. 2. Anti-reflux regimen 3. Continue PPI 4. Avoid NSAIDS 5. Clear liquid diet monitor hb closely ct abdomen/pelvis gastrin level celiac panel PATIENT CONDITION: stable DISPOSITION: Inpatient REPEAT EXAM: Return 6 weeks EGD Josselyn House MD eSigned: Josselyn House MD 04/15/2018 1:10 PM cc: PATIENT NAME: Mauro Anthony MR#: [id number]
[2018-04-15] MEDS: Morphine Inj 4 MG/ML Vial IV.PUSH PRN ×3 (13:33→22:02)
[2018-04-15] MEDS: Sod Chloride 0.9% Inj 1,000 ML IV.CONT SCH ×2 (14:58→20:42)
[2018-04-15] MEDS: Sucralfate 1 GM Tablet PO SCH ×2 (17:26→20:42)
[2018-04-15 18:02] LABS: Hematocrit 27.6 % (39.0-51.0); Hemoglobin 9.8 gm/dL (13.0-17.0)
[2018-04-15] MEDS: Pantoprazole Inj 80 MG in Sodium Chlor 0.9% Inj 100 ML IV.CONT SCH (20:42)
--- NOTE | 2018-04-15 20:55 | CT ---
EXAM DATE: 04/15/2018 8:44 PM EST AGE/SEX: 58 years / Male INDICATIONS: Anemia with rectal bleeding. History of gastric ulcers. CLINICAL DATA: This is the patient's initial encounter. Patient reports that signs and symptoms have been present for 1 day and indicates a pain score of 0/10. MEDICAL/SURGICAL HISTORY: Cerebrovascular disease. Gastroesophageal reflux disease. Inguinal h ernia Appendectomy. Bowel resection Gastric resection ORAL CONTRAST: Prescribed oral contrast ingested. RADIATION DOSE: 4.60 CTDI (mGy) COMPARISON: No prior exams available for comparison. TECHNIQUE: Multiple contiguous axial images were obtained through the abdomen and pelvis following b olus infusion of 75 ml Omnipaque 350 (iohexol) nonionic water-soluble contrast as a single exam dos e. Prescribed oral contrast ingested. Using automated exposure control and adjustment of the mA and/ or kV according to patient size, radiation dose was kept as low as reasonably achievable to obtain op timal diagnostic quality images. DICOM format image data is available electronically for review and comparison. FINDINGS: Lower Lungs: The visualized lower lungs are clear. Liver: There is diffuse decreased attenuation to the liver. There is air within the biliary system. A ir seen within the gallbladder. Spleen: Homogeneous density without enlargement. Pancreas: Unremarkable without mass or calcification. Kidneys: Normal in size and shape. No evidence of hydronephrosis. There is a 0.8 cm hypodense mass s een at the lateral posterior inferior kidney. There is a 1.4 cm hypodense mass seen at the lateral valentine perior left kidney. These masses are nonspecific. There is a 2.3 cm cyst at the medial upper left kid dane. There are a few other smaller cysts seen at the inferior left kidney. There is a tiny 2 mm nonob structing left renal stone seen at the mid right collecting system. Adrenal Glands: Unremarkable. Aorta: The aorta and proximal iliac vessels are grossly unremarkable without aneurysmal dilation. A pical described calcifications are seen. Bowel/Mesentery: There is a hernia seen in the left inguinal region extending into the left hemiscro prudencio containing segments of small bowel. Significant bowel dilatation is not seen. There appears to be high density material seen adjacent to the posterior inferior aspect of the duodenum/right retroperi toneal region. This could be from prior surgery. There do appear to be bowel anastomosis sutures in t he small bowel in the left upper quadrant. Abdominal Wall: Intact. Retroperitoneum: No evidence of adenopathy in the retrocrural, para-aortic, or deep pelvic regions. Bladder: Contours are smooth. Reproductive Organs: No abnormal masses or calcifications seen. Inguinal: The inguinal region is unremarkable without evidence of adenopathy. Bony Structures: There is degenerative change in the lower lumbar spine. CONCLUSION: 1. Hernia containing small bowel in the left inguinal region without definite bowel dilatation. 2. Hepatic steatosis. 3. Pneumobilia. This be correlated with any recent procedure. If the patient has not had a recent pr ocedure, there is likely communication between the biliary system and the bowel. Electronically signed by: Nicolas Ovalles MD 04/15/2018 8:54 PM EST
--- NOTE | 2018-04-15 21:40 | ECG ---
Date Performed: 04/15/2018 Time Performed: 10:04:35 PTAGE: 58 years EKG: SINUS TACHYCARDIA NONSPECIFIC T-WAVE ABNORMALITY Compared to previous tracing, ST-T abnorma lity new ABNORMAL RHYTHM ECG PREVIOUS TRACING : 11/10/2009 06.37 DOCTOR: Brock Regalado Interpretating Date/Time 04/15/2018 21:39:54
[2018-04-15 22:48] LABS: Hematocrit 25.4 % (39.0-51.0)
[2018-04-16] MEDS: Morphine Inj 4 MG/ML Vial IV.PUSH PRN ×5 (02:20→20:31)
[2018-04-16] MEDS: Sod Chloride 0.9% Inj 1,000 ML IV.CONT SCH ×3 (04:21→20:30)
[2018-04-16] MEDS: Pantoprazole Inj 80 MG in Sodium Chlor 0.9% Inj 100 ML IV.CONT SCH ×2 (05:52→16:17)
[2018-04-16 06:14] LABS: Hemoglobin 8.7 gm/dL (13.0-17.0); Mean Corpuscular Hemoglobin 34.9 pg (27.0-34.0); Mean Corpuscular Volume 99.8 fL (80.0-100.0); Mean Platelet Volume 9.3 fL (7.0-11.0); Platelet Count 174 th/mm3 (150-450); Red Cell Distribution Width 13.2 % (11.6-17.2); White Blood Count 6.9 th/mm3 (4.0-11.0)
[2018-04-16] MEDS: Sucralfate 1 GM Tablet PO SCH ×4 (08:02→20:31)
[2018-04-16] MEDS: REMOVE OLD NICOTINE T-DERMAL SCH (08:03)
--- NOTE | 2018-04-16 08:58 | P.PNIM ---
Subjective Interval history: f/u; GI bleed in no acute distress. looks and feels better today. no further GI bleed. no chest pain/ dizziness or sob. Physical Exam Vital signs: Vital Signs 04/15/18 09:53 04/15/18 10:16 04/15/18 10:17 Temperature 98.1 F Pulse Rate 104 H 92 H Respiratory Rate 22 Blood Pressure 135/98 H Pulse Oximetry 100 99 04/15/18 13:22 04/15/18 16:00 04/15/18 20:00 Temperature 97.3 F L 98.6 F 97.9 F Pulse Rate 71 63 79 Respiratory Rate 20 17 18 Blood Pressure 133/68 110/67 104/65 Pulse Oximetry 100 91 L 97 04/16/18 00:00 04/16/18 08:00 Temperature 98.2 F 97.5 F L Pulse Rate 63 67 Respiratory Rate 18 17 Blood Pressure 115/56 L 108/75 Pulse Oximetry 96 96 Intake & Output 04/15/18 04/16/18 04/16/18 18:59 06:59 18:59 Intake Total 2019 1320 / 1320 Output Total 700 / 700 Balance 2019 620 / 620 Weight 66 kg 66.5 kg Intake: IV 1000 / 1000 1200 / 1200 Protonix Inj 80 MG In NS Inj 200 / 200 100 ML @ 10 mls/hr IV.CONT Q10H RUSLAN Rx#:[id number] NS Inj 1,000 ML @ 125 mls/hr IV 1000 / 1000 .CONT .Q8H RUSLAN Rx#:[id number] NS Inj 1,000 ML @ Wide Open IV. 1000 / 1000 SIG BOLUS ONE Rx#:[id number] Oral 720 / 720 120 / 120 Anesthesia Amount 300 / 300 Output: Urine 700 / 700 Other: # Voids 2 2 Date of Last Bowel Movement 04/15/18 Weight On Admission 66 kg - Constitutional no acute distress - Routine Respiratory Exam Present: CTA bilaterally - Routine Cardiovascular Exam Present: RRR - Routine Abdominal Exam Present: soft - Routine Extremities Exam Comments: no pedal edema. - Routine Neurological Exam Present: alert, oriented X3 Results - Labs CBC & Chem 7: 04/16/18 04:21 04/15/18 10:18 Laboratory Results - last 24 hr 04/15/18 04/15/18 04/15/18 10:18 10:18 10:18 WBC 11.6 H RBC 3.25 L Hgb 11.2 L Hct 32.8 L MCV 100.8 H MCH 34.3 H MCHC 34.1 RDW 13.3 Plt Count 246 MPV 9.2 Neut % (Auto) 80.0 H Lymph % (Auto) 13.1 [place] % (Auto) 5.7 Eos % (Auto) 0.8 Baso % (Auto) 0.4 Neut # (Auto) 9.3 H Lymph # (Auto) 1.5 [place] # (Auto) 0.7 Eos # (Auto) 0.1 Baso # (Auto) 0.1 WBC Differential . Differential Comment Auto diff final PT 11.1 INR 1.1 APTT 24.4 Sodium 135 L Potassium 5.1 Chloride 104 Carbon Dioxide 23.6 Anion Gap 7 BUN 46 H Creatinine 1.01 Estimated GFR 76 L Random Glucose 110 H Calcium 8.0 L Total Bilirubin 0.6 AST 55 H ALT 53 Alkaline Phosphatase 79 Troponin I Less than 0.02 L Total Protein 6.6 Albumin 3.3 L Blood Type Antibody Screen 04/15/18 04/15/18 04/15/18 10:18 16:58 21:55 WBC RBC Hgb 9.8 L 9.0 L Hct 27.6 L 25.4 L MCV MCH MCHC RDW Plt Count MPV Neut % (Auto) Lymph % (Auto) [place] % (Auto) Eos % (Auto) Baso % (Auto) Neut # (Auto) Lymph # (Auto) [place] # (Auto) Eos # (Auto) Baso # (Auto) WBC Differential Differential Comment PT INR APTT Sodium Potassium Chloride Carbon Dioxide Anion Gap BUN Creatinine Estimated GFR Random Glucose Calcium Total Bilirubin AST ALT Alkaline Phosphatase Troponin I Total Protein Albumin Blood Type O Positive Antibody Screen Negative 04/16/18 04:21 WBC 6.9 RBC 2.50 L Hgb 8.7 L Hct 25.0 L MCV 99.8 MCH 34.9 H MCHC 35.0 RDW 13.2 Plt Count 174 MPV 9.3 Neut % (Auto) Lymph % (Auto) [place] % (Auto) Eos % (Auto) Baso % (Auto) Neut # (Auto) Lymph # (Auto) [place] # (Auto) Eos # (Auto) Baso # (Auto) WBC Differential Differential Comment PT INR APTT Sodium Potassium Chloride Carbon Dioxide Anion Gap BUN Creatinine Estimated GFR Random Glucose Calcium Total Bilirubin AST ALT Alkaline Phosphatase Troponin I Total Protein Albumin Blood Type Antibody Screen - Imaging Impressions Abdomen/Pelvis CT 04/15/18 00:00 CONCLUSION: 1. Hernia containing small bowel in the left inguinal region without definite bowel dilatation. 2. Hepatic steatosis. 3. Pneumobilia. This be correlated with any recent procedure. If the patient has not had a recent procedure, there is likely communication between the biliary system and the bowel. - Procedures EGD. Assessment and Plan - Plan A/P - GI bleed with history of PUD; s/p EGD; revealed Surgical changes involving duodenum and stomach multiple clean base ulcers in duodenum second portion -three, one had a vissible vessel, possible source of bleeding -s/p cautery using balltip , epinephrine injected continue PPI- close monitoring of H/H and transfuse as needed. GI following. Discharge Planning: home when stable- pending GI work-up.
[2018-04-16 12:25] LABS: Hematocrit 28.2 % (39.0-51.0); Hemoglobin 9.6 gm/dL (13.0-17.0)
[2018-04-16 19:42] LABS: Hematocrit 26.9 % (39.0-51.0); Hemoglobin 9.6 gm/dL (13.0-17.0)
[2018-04-17 00:03] LABS: Hematocrit 26.7 % (39.0-51.0); Hemoglobin 8.9 gm/dL (13.0-17.0)
[2018-04-17] MEDS: Morphine Inj 4 MG/ML Vial IV.PUSH PRN ×6 (01:20→23:24)
[2018-04-17] MEDS: Pantoprazole Inj 80 MG in Sodium Chlor 0.9% Inj 100 ML IV.CONT SCH ×4 (01:32→22:31)
[2018-04-17] MEDS: Sod Chloride 0.9% Inj 1,000 ML IV.CONT SCH ×3 (03:24→20:14)
[2018-04-17 07:28] LABS: Hematocrit 25.3 % (39.0-51.0); Hemoglobin 8.5 gm/dL (13.0-17.0)
--- NOTE | 2018-04-17 08:20 | P.PNIM ---
Subjective Interval history: f/u; GI bleed in no acute distress. has some lower abdominal pain. no further GI bleed. d/w the RN and no acute issues over night. Physical Exam Vital signs: Vital Signs 04/16/18 12:00 04/16/18 16:00 04/16/18 20:00 Temperature 97.7 F 97.6 F 97.8 F Pulse Rate 73 53 L 60 Respiratory Rate 17 17 15 Blood Pressure 111/69 117/61 142/72 H Pulse Oximetry 97 94 L 98 04/17/18 00:00 04/17/18 08:00 Temperature 97.8 F 98.0 F Pulse Rate 57 L 54 L Respiratory Rate 15 16 Blood Pressure 113/65 106/62 Pulse Oximetry 94 L 95 Intake & Output 04/16/18 04/17/18 04/17/18 18:59 06:59 18:59 Intake Total 2060 / 2060 2600 / 2600 Output Total 1025 / 1025 Balance 1035 / 1035 2600 / 2600 Weight 67.8 kg Intake: IV 1100 / 1100 2100 / 2100 Protonix Inj 80 MG In NS Inj 100 / 100 100 / 100 100 ML @ 10 mls/hr IV.CONT Q10H [facility] Rx#:[id number] NS Inj 1,000 ML @ 125 mls/hr IV 1000 / 1000 2000 / 2000 .CONT .Q8H [facility] Rx#:[id number] Oral 960 / 960 500 / 500 Output: Urine 1025 / 1025 Other: # Voids 4 - Constitutional no acute distress - Routine Respiratory Exam Present: CTA bilaterally - Routine Cardiovascular Exam Present: RRR - Routine Abdominal Exam Present: soft - Routine Extremities Exam Comments: no pedal edema. - Routine Neurological Exam Present: alert, oriented X3 Results - Labs CBC & Chem 7: 04/17/18 06:07 04/15/18 10:18 Laboratory Results - last 24 hr 04/16/18 04/16/18 04/16/18 11:30 19:13 23:52 Hgb 9.6 L 9.6 L 8.9 L Hct 28.2 L 26.9 L 26.7 L 04/17/18 06:07 Hgb 8.5 L Hct 25.3 L - Procedures EGD. Assessment and Plan - Plan A/P - GI bleed with history of PUD; no further bleed. s/p EGD; revealed Surgical changes involving duodenum and stomach multiple clean base ulcers in duodenum second portion -three, one had a vissible vessel, possible source of bleeding -s/p cautery using balltip , epinephrine injected continue PPI- close monitoring of H/H and transfuse as needed. advance diet per GI. GI following. Discharge Planning: home when cleared by GI.
[2018-04-17] MEDS: REMOVE OLD NICOTINE T-DERMAL SCH (08:57)
[2018-04-17] MEDS: Sucralfate 1 GM Tablet PO SCH ×4 (08:57→20:18)
[2018-04-17 13:57] LABS: Hematocrit 25.5 % (39.0-51.0); Hemoglobin 8.9 gm/dL (13.0-17.0)
[2018-04-18] MEDS: Morphine Inj 4 MG/ML Vial IV.PUSH PRN ×2 (03:32→08:56)
[2018-04-18] MEDS: Sod Chloride 0.9% Inj 1,000 ML IV.CONT SCH ×2 (03:39→12:45)
[2018-04-18] MEDS: Pantoprazole Inj 80 MG in Sodium Chlor 0.9% Inj 100 ML IV.CONT SCH ×2 (05:53→08:59)
[2018-04-18] MEDS: REMOVE OLD NICOTINE T-DERMAL SCH (08:51)
[2018-04-18] MEDS: Sucralfate 1 GM Tablet PO SCH ×2 (08:56→12:45)
--- NOTE | 2018-04-18 09:44 | P.PNGI ---
Subjective Interval history: Patient laying supine in bed Denies any noted bleeding Denies nausea or vomiting States tolerating clear liquids well Physical Exam Vital signs: Vital Signs 04/17/18 09:58 04/17/18 12:20 04/17/18 15:45 Temperature 97.6 F 97.2 F L Pulse Rate 55 L 47 L Respiratory Rate 17 17 Blood Pressure 127/73 117/71 Pulse Oximetry 95 95 95 04/17/18 20:00 04/17/18 20:39 04/18/18 00:00 Temperature 98.1 F 97.6 F Pulse Rate 57 L 54 L Respiratory Rate 19 20 Blood Pressure 118/68 131/73 Pulse Oximetry 97 97 95 04/18/18 08:00 Temperature 97.4 F L Pulse Rate 62 Respiratory Rate 17 Blood Pressure 133/77 Pulse Oximetry 93 L Intake & Output 04/17/18 04/18/18 04/18/18 18:59 06:59 18:59 Intake Total 2600 / 2600 2900 / 2900 Output Total 900 / 900 Balance 2600 / 2600 1999 Weight 67.8 kg Intake: IV 1100 / 1100 2200 / 2200 Protonix Inj 80 MG In NS Inj 100 / 100 200 / 200 100 ML @ 10 mls/hr IV.CONT Q10H [facility] Rx#:[id number] NS Inj 1,000 ML @ 125 mls/hr IV 1000 / 1000 1999 / 1999 .CONT .Q8H [facility] Rx#:[id number] Oral 1500 / 1500 700 / 700 Output: Urine 900 / 900 Other: # Voids 3 Date of Last Bowel Movement 04/15/18 04/15/18 # Bowel Movements 0 - Constitutional no acute distress - Routine HEENT Exam Head: Present: normocephalic - Routine Respiratory Exam Present: CTA bilaterally - Routine Cardiovascular Exam Present: RRR - Routine Abdominal Exam Present: soft, normoactive bowel sounds. Absent: tenderness, distended, guarding, firm - Routine Extremities Exam Absent: edema - Routine Skin Exam Present: dry, warm. Absent: pallor - Routine Neurological Exam Present: alert - Routine Psychiatric Exam Present: normal affect, cooperative Results - Labs CBC & Chem 7: 04/17/18 13:34 04/15/18 10:18 Laboratory Results - last 24 hr 04/17/18 13:34 Hgb 8.9 L Hct 25.5 L - Procedures EGD. Assessment and Plan - Plan 58-year-old slim male presented to the hospital on 04/15/2018 with melena stools times 5 days and according to the record one episode of blood-streaked emesis yesterday currently patient denies any nausea or vomiting or abdominal pain no hematemesis and no current bright red rectal bleeding patient denies any use of NSAIDs and takes no blood thinners. According to the patient in the record patient had bowel resections x2 last one 7 years ago secondary to ulcer perforation. Patient states that he had been doing well and in his usual state of health up until this past week. Labs reviewed which showed hemoglobin 11.2, WBC count 11.6, PT/INR 1.1, bilirubin 0.6, AST 55, ALT 53, no EGD or colonoscopy within the past 7 years. Patient notes unknown family history of any colon cancer as he is adopted. Gastroenterology was consulted to assist with patient's possible GI bleeding and plan of care. Currently patient is n.p.o. and plan is for EGD today Melena stools probably secondary to upper GI bleed History of ulcer and perforation with multiple bowel resections x2 approximately 7 years ago. Patient denies any NSAID use no fever, no chills 04/18/2018 Patient resting supine in bed. Denies any noted bleeding. Denies nausea vomiting, abdominal pain or hematemesis. Patient denies dark stools. 04/17/2018 hemoglobin 8.9 hematocrit 25.5 stable. Post EGD 04/15/2018 1. Surgical changes involving duodenum and stomach multiple clean base ulcers in duodenum second portion -three, one had a vissible vessel, possible source of bleeding -s/p cautery using balltip , epinephrine injected 1:10.000 - 2 cc, 3 clips applied - deployment malfunctioned -not attached to ulcer site no active bleeding gastritis antrum-biopsy 2. Retroflexed views revealed a hiatal hernia Plan -Advance diet to regular soft foods -Monitor for bleeding -Bowel regimen -Avoid NSAIDs -Antireflux regimen -Continue PPI-Protonix 40 mg p.o. daily -Gastrin level and celiac panel pending -Patient advised to follow-up with advanced GI, recommending repeat EGD in 6 weeks, patient agrees -Patient stable for discharge home from a GI standpoint This patient has been seen by myself and Dr. Barton and this note is written on his behalf - Attending Attestation Dr. Barton
--- NOTE | 2018-04-18 09:55 | P.PNIM ---
Subjective Interval history: f/u; GI bleed in no acute distress. denies pain. no further GI bleed. wants to go home today. Physical Exam Vital signs: Last Vital Signs Temp 97.4 F L 04/18/18 08:00 Pulse 62 04/18/18 08:00 Resp 17 04/18/18 08:00 BP 133/77 04/18/18 08:00 Pulse Ox 93 L 04/18/18 08:00 Intake & Output 04/16/18 04/17/18 04/18/18 04/19/18 06:59 06:59 06:59 06:59 Intake Total 3340 / 3340 4660 / 4660 5500 / 5500 Output Total 700 / 700 1025 / 1025 900 / 900 Balance 2640 / 2640 3635 / 3635 4600 / 4600 Weight 66.5 kg 67.8 kg 67.8 kg Constitutional no acute distress Routine Respiratory Exam Present CTA bilaterally Routine Cardiovascular Exam Present RRR Routine Abdominal Exam Present soft Routine Extremities Exam Comments: no pedal edema. Routine Neurological Exam Present alert and oriented X3 Results Labs CBC & Chem 7: 04/17/18 13:34 04/15/18 10:18 Procedures Procedures: EGD. Assessment and Plan Plan A/P - GI bleed with history of PUD; no further bleed. s/p EGD; revealed Surgical changes involving duodenum and stomach multiple clean base ulcers in duodenum second portion -three, one had a vissible vessel, possible source of bleeding -s/p cautery using balltip , epinephrine injected continue PPI- H/H stable- diet advance and patient was cleared for discharge per GI with outpatient follow-up. Discharge Planning: home today. see med list. f/u; pcp and GI. d/w the patient and RN. Progress Note: Quality VTE Deep Vein Thrombosis/Pulmonary Embolism Present on Admission: No
--- NOTE | 2018-04-18 09:57 | P.DS ---
DS: Providers Date of admission: 04/15/18 11:21 Primary care physician: Olamide Primary Care Physician Consults: 04/15/18 11:08 Consult to Gastroenterology Routine Consulting Provider: Josselyn House Reason for Consultation: GI Bleed Notified:: Service Spoke with:: TABITHA Date Notified:: 04/15/18 Time Notified:: 11:12 Ordering Provider: AUNG Brief History from admission: patient is a 58 y/o male with history of PUD- s/p bowel resection a few years ago presented to ER with GI bleed. he says that the past few days he had multiple loose black stools. earlier this morning he vomited blood which made him come to ER. he denies any abdominal pain. he denies any chest pain or sob but he says that he feels dizzy when he's sitting up. DS: Summary - GI bleed with history of PUD; no further bleed. s/p EGD; revealed Surgical changes involving duodenum and stomach multiple clean base ulcers in duodenum second portion -three, one had a vissible vessel, possible source of bleeding -s/p cautery using balltip , epinephrine injected continue PPI- H/H stable- diet advance and patient was cleared for discharge per GI with outpatient follow-up. Time Spent with Patient Total time spent providing and/or coordinating discharge services: Less than 30 minutes Quality: VTE Deep Vein Thrombosis/Pulmonary Embolism Present on Admission: No Exam Narrative Exam Narrative: patient looks comfortable with no distress. on exam, abdomen is soft with no tenderness. bilateral air entry with no wheezing. no pedal edema. Results Procedures completed during hospitalization: EGD. Pending studies at discharge: Pending at discharge 04/15/18 07:44 Surgical [PTH] Routine Labs on day of discharge: Labs from last 24 hours 04/17/18 13:34 Hgb 8.9 L Hct 25.5 L Impressions ITS Impressions Abdomen/Pelvis CT 04/15/18 00:00 CONCLUSION: 1. Hernia containing small bowel in the left inguinal region without definite bowel dilatation. 2. Hepatic steatosis. 3. Pneumobilia. This be correlated with any recent procedure. If the patient has not had a recent procedure, there is likely communication between the biliary system and the bowel. Discharge Plan Discharge Condition Condition: Fair Physicians Team Primary Care Provider: [facility] Attending Provider: Miguel Torres Other Providers: Josselyn House Rxs /Orders / Referrals /Forms Prescriptions: No Action No Known Home Medications RF: 0 Referrals: [facility] [Primary Care Provider] - See Instructions Status ED Status: Left Department
--- NOTE | 2018-04-20 12:48 | PQ ---
Physician Query Response Document PATIENT: Mauro Anthony : 1960 ADMIT DATE: 04/15/2018 11:21 AM DISCH DATE: 04/18/2018 6:28 PM RESPONDING PROVIDER #: [email or web address] QUERY TEXT: Anemia Type Anemia is documented in the Medical Record. Please specify the cause (includes suspected or probable cause) Such as: -- Due to acute blood loss -- Due to chronic blood loss -- Due to iron deficiency -- Due to postoperative blood loss -- Due to chronic disease -- Other, please specify If you have any additional questions/comments and/or concerns, please do not hesitate to reach out to the CDI/Coding Hotline, Ext. [phone] The patient's Clinical Indicators include: GI consult 04/15/18 Dr. House documents: ADDENDUM ROS reviewed melena stools over the past 5 days, anemia otherwise systems unremarkable or reported in the HPI ED report: Diagnosis: Acute blood loss anemia, Acute GI bleeding H Query created by: Lorene Hobson on 04/19/2018 2:06 PM RESPONSE TEXT: Anemia due to acute blood loss. Electronically signed by: Amparo Torres MD 04/20/2018 12:43 PM
[2018-04-20 19:51] LABS: IgA Serum 168 mg/dL (81-463); Tissue Transglutaminase Ab IgG ND U/mL (())
== END 2018-04-18 18:28 | disposition home or self-care (01) ==
LOC: NEPE 09:47 → NEDA 11:21 → N07 13:05
PROVIDERS: ADMIT Internal Medicine; ATTEND Internal Medicine
PROC: PANENDO (2018-04-15 12:26)

== ENCOUNTER 2018-04-23 14:35 | Inpatient (IN) ==
[2018-04-23] MEDS ORDERED: Sod Chloride 0.9% Inj 1,000 ML IV.SIG SCH (15:45)
[2018-04-23 16:10] LABS: Baso # (Auto) 0.1 th/mm3 (0.0-0.2); Baso % (Auto) 0.9 % (0.0-2.0); Eos # (Auto) 0.2 th/mm3 (0.0-0.4); Eos % (Auto) 2.5 % (0.0-4.0); Lymph # (Auto) 1.7 th/mm3 (1.0-4.8); Lymph % (Auto) 19.6 % (9.0-44.0); Mean Corpuscular HGB Conc 33.5 % (32.0-36.0); Mean Corpuscular Volume 104.6 fL (80.0-100.0); Mean Platelet Volume 8.9 fL (7.0-11.0); Mono # (Auto) 0.5 th/mm3 (0.0-0.9); Mono % (Auto) 5.5 % (0.0-8.0); Neut # (Auto) 6.3 th/mm3 (1.8-7.7); Neut % (Auto) 71.5 % (16.0-70.0); Platelet Count 353 th/mm3 (150-450); Red Blood Count 1.93 mil/mm3 (4.50-5.90); Red Cell Distribution Width 14.3 % (11.6-17.2); White Blood Count 8.7 th/mm3 (4.0-11.0)
[2018-04-23 16:21] LABS: Hemoglobin 6.7 gm/dL (13.0-17.0)
--- NOTE | 2018-04-23 16:21 | ED ---
HPI General Chief Complaint: Syncope Stated Complaint: Traumatic Bleed Time Seen by Provider: 04/23/18 15:32 Source: patient Mode of arrival: ambulatory Limitations: no limitations History of Present Illness HPI narrative: Patient is a 58-year-old male presenting to the emergency department for evaluation after having a syncopal episode prior to arrival. Patient states he started feeling lightheaded yesterday. Today he reports that he was walking to his trash can approximately 20 feet when he became lightheaded and passed out. States he did not hit his head but landed on his right shoulder. He reports 10 out of 10 pain to his shoulder. He denies any nausea, vomiting, diarrhea, shortness of breath, chest pain, headache, neck pain. Patient states that he had an EGD last week and had bleeding ulcers, he has not been on any of the prescribed medications since he was discharged due to cost. MD complaint: Reports felt faint and collapsed Onset (ago): minute(s) -: second(s) Prodromal symptoms: Reports lightheaded Witnessed: no Context: Reports during exertion Injuries sustained associated with event: Reports RUE Current symptoms: Reports back to baseline Treatments prior to arrival: Reports none Related Data Home Medications Medication Instructions Recorded Confirmed No Known Home Medications 04/23/18 04/23/18 Allergies Allergy/AdvReac Type Severity Reaction Status Date / Time acetaminophen Allergy Hypotension Verified 04/15/18 11:30 hydrocodone Allergy Hypotension Verified 04/15/18 11:30 Review of Systems ROS: all other systems reviewed are negative PMFSH Medical History Medical History Tobacco abuse (Acute) Blood in stool (Acute) Gastric ulcer (Acute) Surgical History Surgical History History of esophagogastroduodenoscopy (EGD) (Acute) Hx of appendectomy (Acute) History of bowel resection (Acute) Family History Family History Other Adopted Family history unknown Social History Social History Substance History: Active Abuse Second Hand Smoke Exposure: No Smoking Status: Current every day smoker Tobacco Type: Cigarettes How Often Do You Have a Drink Containing Alcohol: Monthly or less Recent Travel in [facility] within the Last 8 Weeks: No Recent Out of Country Travel within the Last 8 Weeks: No Substance Abuse Detail Marijuana: Substance Use Status: Active Immunization History Tetanus Immunization: Unsure Exam Narrative Exam Narrative: GENERAL: Well-developed, well-nourished, alert male. Appears uncomfortable, in no acute distress. SKIN: Focused skin assessment warm/dry. HEAD: Atraumatic. Normocephalic. EYES: Pupils equal and round. No scleral icterus. No injection or drainage. ENT: No nasal bleeding or discharge. Mucous membranes pink and moist. NECK: Trachea midline. No JVD. CARDIOVASCULAR: Regular rate and rhythm. No murmur appreciated. RESPIRATORY: No accessory muscle use. Clear to auscultation. Breath sounds equal bilaterally. GASTROINTESTINAL: Abdomen soft, non-tender, nondistended. Hepatic and splenic margins not palpable. MUSCULOSKELETAL: No obvious deformities. No clubbing. No cyanosis. No edema. 2+ radial pulse. Decreased range of motion with flexion and extension of right shoulder NEUROLOGICAL: Awake and alert. No obvious cranial nerve deficits. Motor grossly within normal limits. Normal speech. PSYCHIATRIC: Appropriate mood and affect; insight and judgment normal. Course Initial Documented Vital Signs Temperature 98.0 F 04/23/18 15:05 Pulse Rate 70 04/23/18 15:05 Respiratory Rate 18 04/23/18 15:05 Blood Pressure 109/54 L 04/23/18 15:05 Pulse Oximetry 98 04/23/18 15:05 Last Documented Vital Signs Temperature 97.3 F L 04/24/18 04:00 Pulse Rate 50 L 04/24/18 04:00 Respiratory Rate 18 04/24/18 04:00 Blood Pressure 114/74 04/24/18 04:00 Pulse Oximetry 98 04/24/18 04:00 Medical Decision Making RENAN Attestation RENAN supervised visit: Yes Attestation: I, Dr. Linares, have reviewed the advance practice practitioner's documentation and am in agreement, met with the patient face to face, made the diagnosis, and the medical decision making was done by me. *My assessment and Findings: Pt with acute anemia. On prior recent admission, EGD revealed bleeding gastric ulcers, which were repaired. Admission for transfusion plus/minus GI evaluation. Abdomen soft/non-tender on my exam. Lung sounds intact bilaterally. MDM Narrative Medical decision making narrative: Patient is a 58-year-old male presenting after a syncopal episode. Labs and imaging ordered and pending. Patient's vital signs are stable. Stool is Hemoccult positive. CBC with a hemoglobin of 6.7/20.2, this is significantly decreased when compared to prior 5 days ago. Type and screen as well as 2 units of red blood cells ordered. Chemistry with no acute findings. X-ray of the right shoulder with no acute findings, patient was given tramadol for pain. Protonix bolus and IV Protonix drip ordered. [facility] paged for admission for symptomatic anemia/GI bleed. Dr. Bazan accepted admit. Orders placed. Pt aware of clinical findings and plan of care, he is agreeable. Medical Screen Exam Complete: Yes Emergency Medical Condition: Yes Differential Diagnosis Differential Diagnosis: Contusion versus fracture versus sprain versus strain versus symptomatic anemia versus cardiac arrhythmia versus other Medical Records Medical records reviewed: Yes I reviewed the patient's medical records. Lab Data Lab results reviewed: Yes I reviewed the patient's lab results. Result diagrams: 04/24/18 00:12 04/23/18 15:54 Lab Results 04/23/18 04/23/18 04/23/18 Range/Units 15:54 15:54 15:54 WBC 8.7 (4.0-11.0) th/mm3 RBC 1.93 L (4.50-5.90) mil/mm3 Hgb 6.7 L* (13.0-17.0) gm/dL Hct 20.2 L* (39.0-51.0) % MCV 104.6 H (80.0-100.0) fL MCH 35.0 H (27.0-34.0) pg MCHC 33.5 (32.0-36.0) % RDW 14.3 (11.6-17.2) % Plt Count 353 D (150-450) th/mm3 MPV 8.9 (7.0-11.0) fL Prelim Diff (Auto) Slide review pending Neut % (Auto) 71.5 H (16.0-70.0) % Lymph % (Auto) 19.6 (9.0-44.0) % [place] % (Auto) 5.5 (0.0-8.0) % Eos % (Auto) 2.5 (0.0-4.0) % Baso % (Auto) 0.9 (0.0-2.0) % Neut # (Auto) 6.3 (1.8-7.7) th/mm3 Lymph # (Auto) 1.7 (1.0-4.8) th/mm3 [place] # (Auto) 0.5 (0.0-0.9) th/mm3 Eos # (Auto) 0.2 (0.0-0.4) th/mm3 Baso # (Auto) 0.1 (0.0-0.2) th/mm3 WBC Differential . Differential Comment Auto diff final PT (9.8-11.6) sec INR Ratio APTT (23.4-31.7) sec Sodium 138 (136-145) meq/L Potassium 4.0 (3.5-5.1) meq/L Chloride 107 (98-107) meq/L Carbon Dioxide 24.8 (21.0-32.0) meq/L Anion Gap 6 (5-15) meq/L BUN 14 (7-18) mg/dL Creatinine 0.84 (0.60-1.30) mg/dL Estimated GFR Greater than 89 (>89) mL/min Random Glucose 84 (74-106) mg/dL Calcium 7.8 L (8.5-10.1) mg/dL Magnesium 2.0 (1.5-2.5) mg/dL Total Bilirubin 0.3 (0.2-1.0) mg/dL AST 57 H (15-37) U/L ALT 65 (12-78) U/L Alkaline Phosphatase 74 (45-117) U/L Troponin I Less than 0.02 L (0.02-0.05) ng/mL Total Protein 6.3 L (6.4-8.2) g/dL Albumin 3.2 L (3.4-5.0) g/dL Blood Type O Positive Antibody Screen Negative MTS Gel Crossmatch 04/23/18 04/23/18 04/24/18 Range/Units 16:25 20:00 00:12 WBC (4.0-11.0) th/mm3 RBC (4.50-5.90) mil/mm3 Hgb 8.1 L (13.0-17.0) gm/dL Hct 23.8 L (39.0-51.0) % MCV (80.0-100.0) fL MCH (27.0-34.0) pg MCHC (32.0-36.0) % RDW (11.6-17.2) % Plt Count (150-450) th/mm3 MPV (7.0-11.0) fL Prelim Diff (Auto) Neut % (Auto) (16.0-70.0) % Lymph % (Auto) (9.0-44.0) % [place] % (Auto) (0.0-8.0) % Eos % (Auto) (0.0-4.0) % Baso % (Auto) (0.0-2.0) % Neut # (Auto) (1.8-7.7) th/mm3 Lymph # (Auto) (1.0-4.8) th/mm3 [place] # (Auto) (0.0-0.9) th/mm3 Eos # (Auto) (0.0-0.4) th/mm3 Baso # (Auto) (0.0-0.2) th/mm3 WBC Differential Differential Comment PT 11.8 H (9.8-11.6) sec INR 1.2 Ratio APTT 28.8 (23.4-31.7) sec Sodium (136-145) meq/L Potassium (3.5-5.1) meq/L Chloride (98-107) meq/L Carbon Dioxide (21.0-32.0) meq/L Anion Gap (5-15) meq/L BUN (7-18) mg/dL Creatinine (0.60-1.30) mg/dL Estimated GFR (>89) mL/min Random Glucose (74-106) mg/dL Calcium (8.5-10.1) mg/dL Magnesium (1.5-2.5) mg/dL Total Bilirubin (0.2-1.0) mg/dL AST (15-37) U/L ALT (12-78) U/L Alkaline Phosphatase (45-117) U/L Troponin I (0.02-0.05) ng/mL Total Protein (6.4-8.2) g/dL Albumin (3.4-5.0) g/dL Blood Type Antibody Screen MTS Gel Crossmatch See Detail Imaging Data Radiologist's impression: Shoulder X-Ray 04/23/18 16:12 CONCLUSION: No definite fracture is identified for technique. Discharge Plan Discharge Disposition Patient Disposition: ED Admit(ED Internal Use Only) Discharge Condition Condition: Stable Discharge Order Discharge Orders: ED Use Only Admit Order (Routine); Ordered 04/23/18 Ordered By: Lucie Shearer Discharge Details Diagnosis: Acute GI bleeding, Syncope Physicians Team ED Provider: Van Linares ED Midlevel Provider: Lucie Shearer Primary Care Provider: [facility] Attending Provider: Con Baazn Other Providers: Jorge Moran Status ED Status: Left Department Discharge Information Discharge Date/Time: 04/23/18 19:05
[2018-04-23 16:22] LABS: Hematocrit 20.2 % (39.0-51.0)
[2018-04-23] MEDS ORDERED: Pantoprazole Inj 80 MG in Sodium Chlor 0.9% Inj 35 ML IV.SIG ONE (16:27)
[2018-04-23 16:33] LABS: Alanine Aminotransferase 65 U/L (12-78); Albumin 3.2 g/dL (3.4-5.0); Anion Gap 6 meq/L (5-15); Aspartate Aminotransferase 57 U/L (15-37); Blood Urea Nitrogen 14 mg/dL (7-18); Calcium 7.8 mg/dL (8.5-10.1); Carbon Dioxide 24.8 meq/L (21.0-32.0); Chloride 107 meq/L (98-107); Glomerular Filtration Rate Greater Than 89 mL/min (>89); Glucose,Random 84 mg/dL (74-106); Sodium 138 meq/L (136-145)
[2018-04-23 16:34] LABS: Alkaline Phosphatase 74 U/L (45-117); Total Protein 6.3 g/dL (6.4-8.2)
--- NOTE | 2018-04-23 16:46 | XR ---
EXAM DATE: 04/23/2018 4:43 PM EST AGE/SEX: 58 years / Male INDICATIONS: Pain. Fall. CLINICAL DATA: This is the patient's initial encounter. Patient reports that signs and symptoms have been present for 1 day and indicates a pain score of 10/10. MEDICAL/SURGICAL HISTORY: . Cerebrovascular disease. Gastroesophageal reflux disease. Inguinal hernia Appendectomy. Bowel resection Gastric resection . COMPARISON: No prior exams available for comparison. FINDINGS: No definite fractures, or dislocations are identified. No definite lytic or sclerotic les ion is seen. Slight hypertrophic change is identified within the AC joint with indentation on the valentine bacromial fat plane with subacromial spur . CONCLUSION: No definite fracture is identified for technique. Electronically signed by: Chiqui Zelaya MD Board Certified Radiologist 04/23/2018 4:44 PM EST
[2018-04-23] MEDS ORDERED: Orphenadrine Inj 60 MG/2 ML Ampul IV.PUSH ONE (17:12)
[2018-04-23] MEDS ORDERED: Bisacodyl 10 MG Supp RECTAL PRN (17:17)
--- NOTE | 2018-04-23 17:26 | P.HPIM ---
History of Present Illness Service: [facility] Primary Care Physician: No Primary Care Physician Chief Complaint: Lightheadedness, black stools History of Present Illness: This is a 58-year-old white male with significant past medical history of previous perforated jejunum with exploratory lap and repair x2, prior alcohol abuse, tobacco abuse. Recently admitted on April 15 with GI bleed, H&H did not drop. He underwent EGD on 04/15/2018 which showed Surgical changes involving duodenum and stomach multiple clean base ulcers in duodenum second portion -three, one had a visible vessel, possible source of bleeding -s/p cautery using balltip , epinephrine injected 1:10.000 - 2 cc, 3 clips applied - deployment malfunctioned -not attached to ulcer site, no active bleeding, gastritis antrum-biopsy Retroflexed views revealed a hiatal hernia. He was discharged home in stable condition with instructions to continue PPI and follow for repeat EGD in 6 weeks. Pt. states he did not fill prescriptions as he doesn't work, nor he has insurance. He has felt lightheaded, no CP, no SOB. Has noted dark stools. Complains of mild abdominal discomfort, has a good appetite without any nausea and vomiting. Patient indicates that today he was walking to the trash can approximately 20 feet when he became lightheaded and passed out hitting his right shoulder. He did not hit his head, no neck pain. Patient was evaluated in the emergency room, laboratory workup was completed. CBC remarkable for hemoglobin of 6.7, hematocrit of 20.2. Hemoccult was positive. X-ray of the shoulder was done, no acute findings. Denies any fever, no chills. Prior history of alcohol abuse, patient denies any excessive use. Smokes 1 pack a day. Denies NSAID use. Patient was given tramadol and Norflex for pain. He has been started on Protonix drip. 2 units of blood have been ordered. Patient is admitted for further evaluation and treatment. - Diagnosis (1) Symptomatic anemia (2) Acute blood loss anemia (3) Syncope Inpatient Certification: I certify that the inpatient services were ordered in accordance with Medicare regulations governing the order. This includes certification that hospital inpatient services are reasonable and necessary and in the case of services not specified as inpatient-only under 42 CFR 419.22(n), that they are appropriately provided as inpatient services in accordance to with the 2-midnight benchmark under 43 CFR 412.3(e) Estimated Total Length of Stay (Days): 2 Plans for Post Hospital Care: Home Review of Systems All other systems reviewed negative except as stated in HPI PMFSH - History History Provided By: Patient - Medical History Medical History: Medical History (Last Updated 04/23/18 @ 18:01 by TAM Santana) Tobacco abuse Blood in stool Gastric ulcer - Surgical History Surgical History: Surgical History (Last Updated 04/23/18 @ 18:01 by TAM Santana) History of esophagogastroduodenoscopy (EGD) Hx of appendectomy History of bowel resection - Family History Family History: Family History (Last Updated 04/23/18 @ 18:02 by TAM Santana) Other Adopted Family history unknown - Social History I have reviewed the patient's Social History: Yes - Tobacco History Second Hand Smoke Exposure: No Tobacco Use In Past 30 Days: No Smoking Status: Current every day smoker Tobacco Type: Cigarettes - Alcohol History How Often Do You Have a Drink Containing Alcohol: Monthly or less - Substance Use History Substance History: Active Abuse - Substance Use Type Marijuana Status: Active - Travel History Recent Travel in the [place] Within the Last 8 Weeks: No Recent Travel Out of the Country Within the Last 8 Weeks: No - Immunization History Tetanus Immunization: Unsure Medications and Allergies Active Medications: Active Medications Al Hydroxide/Mg Hydroxide (Milk Of Magnesia Liq) 30 ml PO Q12H PRN PRN Reason: Mild Constipation Bisacodyl (Dulcolax Supp) 10 mg RECTAL DAILY PRN PRN Reason: SEVERE CONSITIPATION Pantoprazole Sodium 80 mg/ (Sodium Chloride) 100 mls @ 10 mls/hr IV.CONT CONT RUSLAN Sodium Chloride (Ns Inj) 1,000 mls @ 100 mls/hr IV.CONT .Q10H RUSLAN Lactulose (Lactulose Liq) 30 ml PO DAILY PRN PRN Reason: SEVERE CONSITIPATION Ondansetron HCl (Zofran Inj) 4 mg IV.PUSH Q6H PRN PRN Reason: NAUSEA OR VOMITING Sennosides (Senokot) 17.2 mg PO Q12H PRN PRN Reason: Moderate Constipation Sodium Chloride (Ns Flush) 2 ml IV.FLUSH BID RUSLAN Sodium Chloride (Ns Flush) 2 ml IV.FLUSH PRN PRN PRN Reason: FLUSH AFTER USING IV ACCESS Allergies Allergy/AdvReac Type Severity Reaction Status Date / Time acetaminophen Allergy Hypotension Verified 04/15/18 11:30 hydrocodone Allergy Hypotension Verified 04/15/18 11:30 Home Medications Medication Instructions Recorded Confirmed Type No Known Home Medications 04/23/18 04/23/18 History Exam Vital signs: Vital Signs 04/23/18 15:05 Temperature 98.0 F Pulse Rate 70 Respiratory Rate 18 Blood Pressure 109/54 L Pulse Oximetry 98 Intake & Output 04/22/18 04/23/18 04/23/18 18:59 06:59 18:59 Weight 72.575 kg Narrative: GENERAL: Well-nourished, well-developed patient in no apparent distress. SKIN: Pale, warm and dry. HEAD: Atraumatic. Normocephalic. EYES: Pupils equal and round. No scleral icterus. No injection or drainage. ENT: No nasal bleeding or discharge. Mucous membranes pink and moist. NECK: Trachea midline. No JVD. CARDIOVASCULAR: Regular rate and rhythm. RESPIRATORY: No accessory muscle use. Clear to auscultation. Breath sounds equal bilaterally. GASTROINTESTINAL: Abdomen soft, non-tender, nondistended. Hepatic and splenic margins not palpable. MUSCULOSKELETAL: Extremities without clubbing, cyanosis, or edema. No obvious deformities. C/O right shoulder pain, minimal bruising noted to deltoid. No swelling. Able to do passive ROM with no crepitation, no joint deformity. NEUROLOGICAL: Awake and alert. No obvious cranial nerve deficits. Motor grossly within normal limits. Five out of 5 muscle strength in the arms and legs. Normal speech. PSYCHIATRIC: Appropriate mood and affect; insight and judgment normal. Results - Labs CBC & Chem 7: 04/23/18 15:54 04/23/18 15:54 Labs: Short CBC 04/23/18 Range/Units 15:54 WBC 8.7 (4.0-11.0) th/mm3 Hgb 6.7 L* (13.0-17.0) gm/dL Hct 20.2 L* (39.0-51.0) % Plt Count 353 D (150-450) th/mm3 BMP 04/23/18 15:54 Sodium 138 Potassium 4.0 Chloride 107 Carbon Dioxide 24.8 BUN 14 Creatinine 0.84 Calcium 7.8 L Cardiac Enzymes 04/23/18 Range/Units 15:54 Troponin I Less than 0.02 L (0.02-0.05) ng/mL Liver Function 04/23/18 Range/Units 15:54 Total Bilirubin 0.3 (0.2-1.0) mg/dL AST 57 H (15-37) U/L ALT 65 (12-78) U/L Alkaline Phosphatase 74 (45-117) U/L Albumin 3.2 L (3.4-5.0) g/dL - Imaging Impressions Shoulder X-Ray 04/23/18 16:12 CONCLUSION: No definite fracture is identified for technique. Caprini VTE Risk Assessment Caprini VTE Risk Assessment: No/Low Risk (score <= 1) VTE Pharmacological Exception Reason: Active bleeding Caprini Risk Assessment Model: Point Value = 1 Point Value = 2 Point Value = 3 Point Value = 5 Age 41-60 Minor surgery BMI > 25 kg/m2 Swollen legs Varicose veins or History of unexplained or recurrent spontaneous Oral contraceptives or hormone replacement Sepsis (< 1 month) Serious lung disease, including pneumonia (< 1 month) Abnormal pulmonary function Acute myocardial infarction Congestive heart failure (< 1 month) History of inflammatory bowel disease Medical patient at bed rest Age 61-74 Arthroscopic surgery Major open surgery (> 45 min) Laparoscopic surgery (> 45 min) Malignancy Confined to bed (> 72 hours) Immobilizing plaster cast Central venous access Age >= 75 History of VTE Family history of VTE Factor V Leiden Prothrombin [id number] Lupus anticoagulant Anticardiolipin antibodies Elevated serum homocysteine Heparin-induced thrombocytopenia Other congenital or acquired thrombophilia Stroke (< 1 month) Elective arthroplasty Hip, pelvis, or leg fracture Acute spinal cord injury (< 1 month) Prophylaxis Regimen: Total Risk Factor Score Risk Level Prophylaxis Regimen 0-1 Low Early ambulation 2 Moderate Order ONE of the following: *Sequential Compression Device (SCD) *Heparin 5000 units SQ BID 3-4 Higher Order ONE of the following medications: *Heparin 5000 units SQ TID *Enoxaparin/Lovenox 40 mg SQ daily (WT < 150 kg, CrCl > 30 mL/min) *Enoxaparin/Lovenox 30 mg SQ daily (WT < 150 kg, CrCl > 10-29 mL/min) *Enoxaparin/Lovenox 30 mg SQ BID (WT < 150 kg, CrCl > 30 mL/min) AND/OR *Sequential Compression Device (SCD) 5 or more Highest Order ONE of the following medications: *Heparin 5000 units SQ TID (Preferred with Epidurals) *Enoxaparin/Lovenox 40 mg SQ daily (WT < 150 kg, CrCl > 30 mL/min) *Enoxaparin/Lovenox 30 mg SQ daily (WT < 150 kg, CrCl > 10-29 mL/min) *Enoxaparin/Lovenox 30 mg SQ BID (WT < 150 kg, CrCl > 30 mL/min) AND *Sequential Compression Device (SCD) Assessment and Plan - Assessment (1) Symptomatic anemia Code(s): D64.9 - Anemia, unspecified Status: Acute (2) Acute blood loss anemia Code(s): D62 - Acute posthemorrhagic anemia Status: Acute (3) Syncope Code(s): R55 - Syncope and collapse Status: Acute - Plan 58 year old PMHx of perforated jejunum with exp. lap x 2, tobacco abuse, prior ETOH abuse. Was recently admitted on 04/15 for GI bleed, did not require PRBC. Had EGD with findings of multiple clean base ulcers in duodenum second portion - three, one had a visible vessel, possible source of bleeding -s/p cautery using balltip , epinephrine injected 1:10.000 - 2 cc, 3 clips applied - deployment malfunctioned -not attached to ulcer site, no active bleeding. Pt presented after having syncope. C/O lightheadedness and dark black stools, did not fill prescriptions. Was found with hemoglobin 6.7, hematocrit 20.2 and positive Hemoccult Acute GI bleed, hemoglobin 6.7, hematocrit 20.2 with positive Hemoccult Recent EGD on 04/15, found with multiple clean base ulcers in duodenum second portion, one had visible vessel, possible source of bleeding. Had cautery using ball-tipped with epinephrine. Was discharged on PPI but did not fill prescription Symptomatic anemia -2 units of packed cells have been ordered, will follow H&H Keep n.p.o. Consult GI Normal saline at 100 an hour -Continue Protonix drip Syncopal episode secondary to symptomatic anemia -continuous telemetry will be ordered -PRBC will be given -continue IVF Right shoulder contusion secondary to fall. Xray done, no fracture found. -Tramadol 50 mg PO q 6 PRN pain has been ordered. Tobacco abuse Tobacco abuse counseling done -Nicotine patch will be ordered Hx of substance abuse, denies daily ETOH use. MCV noted 104.6 -monitor for withdrawal symptoms -add Folic acid and Thiamine No pharmacologic anticoagulation due to GI bleed, will use SCDs Plan of care discussed with patient, questions answered. Code Status: Full code Discussed Condition With: RN, pt., Dr. Bazan Discharge Planning: Possible discharge in 2 days (3) Syncope Qualifiers: Syncope type: unspecified Qualified Code(s): R55 - Syncope and collapse
[2018-04-23] MEDS: Pantoprazole Inj 80 MG in Sodium Chlor 0.9% Inj 100 ML IV.CONT SCH (18:05)
[2018-04-23] MEDS: Sod Chloride 0.9% Inj 1,000 ML IV.CONT SCH (20:54)
[2018-04-23 23:38] LABS: Activated Partial Thrombo Time 28.8 sec (23.4-31.7); INR 1.2 Ratio; Prothrombin Time 11.8 sec (9.8-11.6)
[2018-04-24 00:33] LABS: Hematocrit 23.8 % (39.0-51.0); Hemoglobin 8.1 gm/dL (13.0-17.0)
[2018-04-24] MEDS: Sod Chloride 0.9% Inj 1,000 ML IV.CONT SCH ×2 (03:57→08:02)
[2018-04-24] MEDS: Pantoprazole Inj 80 MG in Sodium Chlor 0.9% Inj 100 ML IV.CONT SCH (04:57)
[2018-04-24 07:33] LABS: Hematocrit 23.8 % (39.0-51.0); Hemoglobin 8.3 gm/dL (13.0-17.0); Mean Corpuscular HGB Conc 35.1 % (32.0-36.0); Mean Corpuscular Hemoglobin 33.7 pg (27.0-34.0); Mean Corpuscular Volume 96.1 fL (80.0-100.0); Mean Platelet Volume 8.7 fL (7.0-11.0); Platelet Count 304 th/mm3 (150-450); Red Blood Count 2.47 mil/mm3 (4.50-5.90); Red Cell Distribution Width 15.9 % (11.6-17.2); White Blood Count 6.5 th/mm3 (4.0-11.0)
[2018-04-24] MEDS ORDERED: Folic Acid 1 MG Tablet PO SCH (09:00)
--- NOTE | 2018-04-24 11:13 | P.CONGI ---
History of Present Illness Consult date: 04/24/18 Consult reason: GI bleed Chief complaint: GI Bleed, symptomatic anemia, syncope History of Present Illness: This patient is a 58-year-old male with past medical history significant for perforated jejunum with exploratory lap and repair x2. Patient also has significant history of alcohol abuse and tobacco abuse. Patient presented to [facility] with complaint of feeling lightheaded and dizzy. States stools have been dark for the last 2 days. Of note, patient underwent EGD on which showed multiple clean base ulcers in the duodenum second portion with visible vessel bulb possible source of bleeding status post cautery. Patient was discharged home with instructions to continue PPI and follow-up for repeat EGD in 6 weeks. Patient states he was unable to fill prescriptions for PPI. Patient denies abdominal pain nausea or vomiting. Upon admission, hemoglobin noted to be 6.7 hematocrit 20.2 with heme positive stools. Patient was started on Protonix drip and given 2 units of packed RBCs. Our service has been consulted to evaluate patient for GI bleeding. <Michelle Barton - Last Filed: 04/24/18 11:05> Review of Systems All other systems reviewed negative except as stated in HPI <Michelle Barton - Last Filed: 04/24/18 11:05> PMFSH - History History Provided By: Patient - Medical History Medical History: Medical History (Last Updated 04/23/18 @ 18:01 by TAM Santana) Tobacco abuse Blood in stool Gastric ulcer - Surgical History Surgical History: Surgical History (Last Updated 04/23/18 @ 18:01 by TAM Santana) History of esophagogastroduodenoscopy (EGD) Hx of appendectomy History of bowel resection - Family History Family History: Family History (Last Updated 04/23/18 @ 18:02 by TAM Santana) Other Adopted Family history unknown - Tobacco History Second Hand Smoke Exposure: No Tobacco Use In Past 30 Days: Yes Smoking Status: Current every day smoker Tobacco Type: Cigarettes - Alcohol History How Often Do You Have a Drink Containing Alcohol: Monthly or less - Substance Use History Substance History: Active Abuse - Substance Use Type Marijuana Status: Active Route Used: Inhalation Reason for Use: Calm Down - Travel History Recent Travel in the [place] Within the Last 8 Weeks: No Recent Travel Out of the Country Within the Last 8 Weeks: No - Immunization History Tetanus Immunization: Unsure Hx Influenza Vaccine This Season: No <Michelle Barton - Last Filed: 04/24/18 11:05> - Medical History Medical History: Medical History (Last Updated 04/23/18 @ 18:01 by TAM Santana) Tobacco abuse Blood in stool Gastric ulcer - Surgical History Surgical History: Surgical History (Last Updated 04/23/18 @ 18:01 by TAM Santana) History of esophagogastroduodenoscopy (EGD) Hx of appendectomy History of bowel resection - Family History Family History: Family History (Last Updated 04/23/18 @ 18:02 by TAM Santana) Other Adopted Family history unknown <Jorge Moran - Last Filed: 04/24/18 11:33> Medications and Allergies Active Medications: Active Medications Al Hydroxide/Mg Hydroxide (Milk Of Magnesia Liq) 30 ml PO Q12H PRN PRN Reason: Mild Constipation Bisacodyl (Dulcolax Supp) 10 mg RECTAL DAILY PRN PRN Reason: SEVERE CONSITIPATION Folic Acid (Folic Acid) 1 mg PO DAILY [facility] Last Admin: 04/24/18 08:05 Dose: 1 mg Pantoprazole Sodium 80 mg/ (Sodium Chloride) 100 mls @ 10 mls/hr IV.CONT CONT [facility] Last Infusion: 04/24/18 09:00 Dose: Infused Sodium Chloride (Ns Inj) 1,000 mls @ 100 mls/hr IV.CONT .Q10H [facility] Last Admin: 04/24/18 08:02 Dose: 100 mls/hr Lactulose (Lactulose Liq) 30 ml PO DAILY PRN PRN Reason: SEVERE CONSITIPATION Nicotine (Habitrol 7 Mg Patch.24 Hr) 1 patch T-DERMAL DAILY [facility] Last Admin: 04/24/18 08:03 Dose: 1 patch Ondansetron HCl (Zofran Inj) 4 mg IV.PUSH Q6H PRN PRN Reason: NAUSEA OR VOMITING Patch Removal (Remove Old Patch) 1 each T-DERMAL DAILY [facility] Last Admin: 04/24/18 08:10 Dose: Not Given Sennosides (Senokot) 17.2 mg PO Q12H PRN PRN Reason: Moderate Constipation Sodium Chloride (Ns Flush) 2 ml IV.FLUSH BID [facility] Last Admin: 12/17/18 08:10 Dose: Not Given Sodium Chloride (Ns Flush) 2 ml IV.FLUSH PRN PRN PRN Reason: FLUSH AFTER USING IV ACCESS Thiamine HCl (Vitamin B1) 100 mg PO BID [facility] Last Admin: 04/24/18 08:05 Dose: 100 mg Tramadol HCl (Ultram) 50 mg PO Q6H PRN PRN Reason: PAIN 6-10;IF UNABLE TO TAKE PO Last Admin: 04/24/18 08:59 Dose: 50 mg <Michelle Barton - Last Filed: 04/24/18 11:05> Active Medications: Active Medications Al Hydroxide/Mg Hydroxide (Milk Of Magnesia Liq) 30 ml PO Q12H PRN PRN Reason: Mild Constipation Bisacodyl (Dulcolax Supp) 10 mg RECTAL DAILY PRN PRN Reason: SEVERE CONSITIPATION Folic Acid (Folic Acid) 1 mg PO DAILY [facility] Last Admin: 04/24/18 08:05 Dose: 1 mg Pantoprazole Sodium 80 mg/ (Sodium Chloride) 100 mls @ 10 mls/hr IV.CONT CONT [facility] Last Infusion: 04/24/18 09:00 Dose: Infused Sodium Chloride (Ns Inj) 1,000 mls @ 100 mls/hr IV.CONT .Q10H [facility] Last Admin: 04/24/18 08:02 Dose: 100 mls/hr Lactulose (Lactulose Liq) 30 ml PO DAILY PRN PRN Reason: SEVERE CONSITIPATION Nicotine (Habitrol 7 Mg Patch.24 Hr) 1 patch T-DERMAL DAILY [facility] Last Admin: 04/24/18 08:03 Dose: 1 patch Ondansetron HCl (Zofran Inj) 4 mg IV.PUSH Q6H PRN PRN Reason: NAUSEA OR VOMITING Patch Removal (Remove Old Patch) 1 each T-DERMAL DAILY [facility] Last Admin: 04/24/18 08:10 Dose: Not Given Sennosides (Senokot) 17.2 mg PO Q12H PRN PRN Reason: Moderate Constipation Sodium Chloride (Ns Flush) 2 ml IV.FLUSH BID [facility] Last Admin: 04/24/18 08:10 Dose: Not Given Sodium Chloride (Ns Flush) 2 ml IV.FLUSH PRN PRN PRN Reason: FLUSH AFTER USING IV ACCESS Thiamine HCl (Vitamin B1) 100 mg PO BID [facility] Last Admin: 04/24/18 08:05 Dose: 100 mg Tramadol HCl (Ultram) 50 mg PO Q6H PRN PRN Reason: PAIN 6-10;IF UNABLE TO TAKE PO Last Admin: 04/24/18 08:59 Dose: 50 mg <BjjovanaLeslieJorge - Last Filed: 04/24/18 11:33> Allergies Allergy/AdvReac Type Severity Reaction Status Date / Time acetaminophen Allergy Hypotension Verified 04/15/18 11:30 hydrocodone Allergy Hypotension Verified 04/15/18 11:30 Home Medications Medication Instructions Recorded Confirmed Type No Known Home Medications 04/23/18 04/23/18 History Exam Vital signs: Vital Signs 04/23/18 15:05 04/23/18 17:41 04/23/18 17:58 Temperature 98.0 F 97.8 F 97.8 F Pulse Rate 70 75 84 Respiratory Rate 18 18 18 Blood Pressure 109/54 L 116/59 L 115/68 Pulse Oximetry 98 04/23/18 18:06 04/23/18 18:16 04/23/18 19:50 Temperature 97.9 F 98.4 F 97.7 F Pulse Rate 71 77 74 Respiratory Rate 18 18 18 Blood Pressure 116/65 112/74 117/62 Pulse Oximetry 99 04/23/18 20:00 04/23/18 20:50 04/23/18 22:04 Temperature 97.7 F Pulse Rate 53 L 74 Respiratory Rate 16 18 16 Blood Pressure 117/62 Pulse Oximetry 99 99 04/23/18 22:52 04/24/18 03:56 04/24/18 04:00 Temperature 97.9 F 97.3 F L Pulse Rate 63 50 L Respiratory Rate 18 16 18 Blood Pressure 116/73 114/74 Pulse Oximetry 96 98 04/24/18 08:00 Temperature 97.3 F L Pulse Rate 52 L Respiratory Rate 18 Blood Pressure 119/73 Pulse Oximetry 97 Intake & Output 04/23/18 04/24/18 04/24/18 18:59 06:59 18:59 Intake Total 1035 / 1035 2380 / 2380 1100 / 1100 Output Total 400 / 400 Balance 1035 / 1035 1979 / 1979 1100 / 1100 Weight 72.575 kg 72.5 kg Intake: IV 1035 / 1035 1100 / 1100 1100 / 1100 Protonix Inj 80 MG In NS Inj 100 / 100 100 / 100 100 ML @ 10 mls/hr IV.CONT CONT [facility] Rx#:[id number] NS Inj 1,000 ML @ 100 mls/hr IV 1000 / 1000 1000 / 1000 .CONT .Q10H [facility] Rx#:[id number] Protonix Inj 80 MG In NS Inj 35 35 / 35 ML @ 420 mls/hr IV.SIG BOLUS ONE Rx#:[id number] NS Inj 1,000 ML @ 1000 mls/hr 1000 / 1000 IV.SIG BOLUS [facility] Rx#:[id number] Oral 480 / 480 Intake (Blood Product) Amt 0 / 0 800 / 800 Rbc As-3 Leukoreduced Unit 400 / 400 [id number] Rbc As-3 Leukoreduced Unit 0 / 0 400 / 400 [id number] Output: Urine 400 / 400 Other: # Voids 1 Date of Last Bowel Movement 04/23/18 Weight On Admission 72.5 kg - Constitutional no acute distress - Routine HEENT Exam Head: Present: normocephalic - Routine Neck Exam Present: supple - Routine Respiratory Exam Present: CTA bilaterally. Absent: accessory muscle use - Routine Cardiovascular Exam Present: RRR, S1, S2 - Routine Abdominal Exam Present: normoactive bowel sounds. Absent: tenderness, distended, guarding, firm - Routine Extremities Exam Present: pulses intact. Absent: edema - Routine Skin Exam Present: dry, warm. Absent: pallor - Routine Neurological Exam Present: alert, oriented X3 <Barton,Michelle - Last Filed: 04/24/18 11:05> Vital signs: Vital Signs 04/23/18 15:05 04/23/18 17:41 04/23/18 17:58 Temperature 98.0 F 97.8 F 97.8 F Pulse Rate 70 75 84 Respiratory Rate 18 18 18 Blood Pressure 109/54 L 116/59 L 115/68 Pulse Oximetry 98 04/23/18 18:06 04/23/18 18:16 04/23/18 19:50 Temperature 97.9 F 98.4 F 97.7 F Pulse Rate 71 77 74 Respiratory Rate 18 18 18 Blood Pressure 116/65 112/74 117/62 Pulse Oximetry 99 04/23/18 20:00 04/23/18 20:50 04/23/18 22:04 Temperature 97.7 F Pulse Rate 53 L 74 Respiratory Rate 16 18 16 Blood Pressure 117/62 Pulse Oximetry 99 99 04/23/18 22:52 04/24/18 03:56 04/24/18 04:00 Temperature 97.9 F 97.3 F L Pulse Rate 63 50 L Respiratory Rate 18 16 18 Blood Pressure 116/73 114/74 Pulse Oximetry 96 98 04/24/18 08:00 Temperature 97.3 F L Pulse Rate 52 L Respiratory Rate 18 Blood Pressure 119/73 Pulse Oximetry 97 Intake & Output 04/23/18 04/24/18 04/24/18 18:59 06:59 18:59 Intake Total 1035 / 1035 2380 / 2380 1100 / 1100 Output Total 400 / 400 Balance 1035 / 1035 1979 1100 / 1100 Weight 72.575 kg 72.5 kg Intake: IV 1035 / 1035 1100 / 1100 1100 / 1100 Protonix Inj 80 MG In NS Inj 100 / 100 100 / 100 100 ML @ 10 mls/hr IV.CONT CONT [facility] Rx#:[id number] NS Inj 1,000 ML @ 100 mls/hr IV 1000 / 1000 1000 / 1000 .CONT .Q10H [facility] Rx#:[id number] Protonix Inj 80 MG In NS Inj 35 35 / 35 ML @ 420 mls/hr IV.SIG BOLUS ONE Rx#:[id number] NS Inj 1,000 ML @ 1000 mls/hr 1000 / 1000 IV.SIG BOLUS [facility] Rx#:[id number] Oral 480 / 480 Intake (Blood Product) Amt 0 / 0 800 / 800 Rbc As-3 Leukoreduced Unit 400 / 400 [id number] Rbc As-3 Leukoreduced Unit 0 / 0 400 / 400 [id number] Output: Urine 400 / 400 Other: # Voids 1 Date of Last Bowel Movement 04/23/18 Weight On Admission 72.5 kg <Jorge Moran - Last Filed: 04/24/18 11:33> Results - Labs CBC & Chem 7: 04/24/18 06:48 04/23/18 15:54 Labs: Laboratory Results - last 24 hr 04/23/18 04/23/18 04/23/18 15:54 15:54 15:54 WBC 8.7 RBC 1.93 L Hgb 6.7 L* Hct 20.2 L* MCV 104.6 H MCH 35.0 H MCHC 33.5 RDW 14.3 Plt Count 353 D MPV 8.9 Prelim Diff (Auto) Slide review pending Neut % (Auto) 71.5 H Lymph % (Auto) 19.6 [place]ershaw % (Auto) 5.5 Eos % (Auto) 2.5 Baso % (Auto) 0.9 Neut # (Auto) 6.3 Lymph # (Auto) 1.7 [place] # (Auto) 0.5 Eos # (Auto) 0.2 Baso # (Auto) 0.1 WBC Differential . Differential Comment Auto diff final PT INR APTT Sodium 138 Potassium 4.0 Chloride 107 Carbon Dioxide 24.8 Anion Gap 6 BUN 14 Creatinine 0.84 Estimated GFR Greater than 89 Random Glucose 84 Calcium 7.8 L Magnesium 2.0 Total Bilirubin 0.3 AST 57 H ALT 65 Alkaline Phosphatase 74 Troponin I Less than 0.02 L Total Protein 6.3 L Albumin 3.2 L Blood Type O Positive Antibody Screen Negative MTS Gel Crossmatch 04/23/18 04/23/18 04/24/18 16:25 20:00 00:12 WBC RBC Hgb 8.1 L Hct 23.8 L MCV MCH MCHC RDW Plt Count MPV Prelim Diff (Auto) Neut % (Auto) Lymph % (Auto) [place] % (Auto) Eos % (Auto) Baso % (Auto) Neut # (Auto) Lymph # (Auto) [place] # (Auto) Eos # (Auto) Baso # (Auto) WBC Differential Differential Comment PT 11.8 H INR 1.2 APTT 28.8 Sodium Potassium Chloride Carbon Dioxide Anion Gap BUN Creatinine Estimated GFR Random Glucose Calcium Magnesium Total Bilirubin AST ALT Alkaline Phosphatase Troponin I Total Protein Albumin Blood Type Antibody Screen MTS Gel Crossmatch See Detail 04/24/18 06:48 WBC 6.5 RBC 2.47 L Hgb 8.3 L Hct 23.8 L MCV 96.1 D MCH 33.7 MCHC 35.1 RDW 15.9 Plt Count 304 MPV 8.7 Prelim Diff (Auto) Neut % (Auto) Lymph % (Auto) [place] % (Auto) Eos % (Auto) Baso % (Auto) Neut # (Auto) Lymph # (Auto) [place] # (Auto) Eos # (Auto) Baso # (Auto) WBC Differential Differential Comment PT INR APTT Sodium Potassium Chloride Carbon Dioxide Anion Gap BUN Creatinine Estimated GFR Random Glucose Calcium Magnesium Total Bilirubin AST ALT Alkaline Phosphatase Troponin I Total Protein Albumin Blood Type Antibody Screen MTS Gel Crossmatch - Imaging Impressions Shoulder X-Ray 04/23/18 16:12 CONCLUSION: No definite fracture is identified for technique. <Michelle Barton - Last Filed: 04/24/18 11:05> - Labs CBC & Chem 7: 04/24/18 06:48 04/23/18 15:54 Labs: Laboratory Results - last 24 hr 04/23/18 04/23/18 04/23/18 15:54 15:54 15:54 WBC 8.7 RBC 1.93 L Hgb 6.7 L* Hct 20.2 L* MCV 104.6 H MCH 35.0 H MCHC 33.5 RDW 14.3 Plt Count 353 D MPV 8.9 Prelim Diff (Auto) Slide review pending Neut % (Auto) 71.5 H Lymph % (Auto) 19.6 [place] % (Auto) 5.5 Eos % (Auto) 2.5 Baso % (Auto) 0.9 Neut # (Auto) 6.3 Lymph # (Auto) 1.7 [place] # (Auto) 0.5 Eos # (Auto) 0.2 Baso # (Auto) 0.1 WBC Differential . Differential Comment Auto diff final PT INR APTT Sodium 138 Potassium 4.0 Chloride 107 Carbon Dioxide 24.8 Anion Gap 6 BUN 14 Creatinine 0.84 Estimated GFR Greater than 89 Random Glucose 84 Calcium 7.8 L Magnesium 2.0 Total Bilirubin 0.3 AST 57 H ALT 65 Alkaline Phosphatase 74 Troponin I Less than 0.02 L Total Protein 6.3 L Albumin 3.2 L Blood Type O Positive Antibody Screen Negative MTS Gel Crossmatch 04/23/18 04/23/18 04/24/18 16:25 20:00 00:12 WBC RBC Hgb 8.1 L Hct 23.8 L MCV MCH MCHC RDW Plt Count MPV Prelim Diff (Auto) Neut % (Auto) Lymph % (Auto) [place] % (Auto) Eos % (Auto) Baso % (Auto) Neut # (Auto) Lymph # (Auto) [place] # (Auto) Eos # (Auto) Baso # (Auto) WBC Differential Differential Comment PT 11.8 H INR 1.2 APTT 28.8 Sodium Potassium Chloride Carbon Dioxide Anion Gap BUN Creatinine Estimated GFR Random Glucose Calcium Magnesium Total Bilirubin AST ALT Alkaline Phosphatase Troponin I Total Protein Albumin Blood Type Antibody Screen MTS Gel Crossmatch See Detail 04/24/18 06:48 WBC 6.5 RBC 2.47 L Hgb 8.3 L Hct 23.8 L MCV 96.1 D MCH 33.7 MCHC 35.1 RDW 15.9 Plt Count 304 MPV 8.7 Prelim Diff (Auto) Neut % (Auto) Lymph % (Auto) [place] % (Auto) Eos % (Auto) Baso % (Auto) Neut # (Auto) Lymph # (Auto) [place] # (Auto) Eos # (Auto) Baso # (Auto) WBC Differential Differential Comment PT INR APTT Sodium Potassium Chloride Carbon Dioxide Anion Gap BUN Creatinine Estimated GFR Random Glucose Calcium Magnesium Total Bilirubin AST ALT Alkaline Phosphatase Troponin I Total Protein Albumin Blood Type Antibody Screen MTS Gel Crossmatch - Imaging Impressions Shoulder X-Ray 04/23/18 16:12 CONCLUSION: No definite fracture is identified for technique. <Jorge Moran - Last Filed: 04/24/18 11:33> Assessment and Plan (1) Acute GI bleeding Status: Acute Code(s): K92.2 - Gastrointestinal hemorrhage, unspecified - Plan This patient is a 58-year-old male with past medical history significant for perforated jejunum with exploratory lap and repair x2. Patient also has significant history of alcohol abuse and tobacco abuse. Patient presented to [facility] with complaint of feeling lightheaded and dizzy. States stools have been dark for the last 2 days. Of note, patient underwent EGD on which showed multiple clean base ulcers in the duodenum second portion with visible vessel bulb possible source of bleeding status post cautery. Patient was discharged home with instructions to continue PPI and follow-up for repeat EGD in 6 weeks. Patient states he was unable to fill prescriptions for PPI. Patient denies abdominal pain nausea or vomiting. Upon admission, hemoglobin noted to be 6.7 hematocrit 20.2 with heme positive stools. Patient was started on Protonix drip and given 2 units of packed RBCs. Our service has been consulted to evaluate patient for GI bleeding. GI bleeding Patient presents with complaint of feeling lightheaded. Reports dark stools times 2 days, denies hematemesis or coffee-ground emesis. 04/15/2018 EGD showed multiple clean base ulcers in the duodenum with a visible vessel bulb possible source of bleeding status post cautery. 04/23/2018 hemoglobin 6.7 hematocrit 20.2 Patient transfused with 2 units of packed RBCs Posttransfusion hemoglobin 8.3 hematocrit 23.8 Plan -N.p.o. -Obtain consent for EGD -Continue PPI -Avoid anticoagulants and NSAIDs -Monitor for bleeding -Monitor hemoglobin hematocrit -Supportive care -Further recommendations to follow This patient has been seen by myself and Dr. Moran and this note is written on his behalf - Attending Attestation Dr. Moran <Michelle Barton - Last Filed: 04/24/18 11:05> (1) Acute GI bleeding Status: Acute Code(s): K92.2 - Gastrointestinal hemorrhage, unspecified - Attending Attestation Patient seen and examined. Agree with above. <Jorge Moran - Last Filed: 04/24/18 11:33>
--- NOTE | 2018-04-24 11:43 | P.PCN ---
Date of procedure: 04/24/18 Pre-op diagnosis: Upper GI bleed and acute blood loss anemia Post-op diagnosis: other (Gastric ulcer, antrum, hiatal hernia) Procedure: THANK YOU FOR THE REFERRAL Indication; Acute blood loss, history of recent bleeding duodenal ulcer Procedure Performed; upper endoscopy After informing the patient about procedure and possible complications consent was signed. history and physical were updated. Patient was taken to the procedure room and placed in position. Time out was completed. Adequate sedation was performed by anesthesia provider. Upper Endoscopy, the scope was placed in the mouth advanced under video guide to the second portion of the duodenum, then the scope was withdrawal to the stomach and retro-flexion was performed, the scope was withdrawal to the esophagus then out of the mouth without any immediate complication Findings; Esophagus: Z line seen at 40 cm. Normal esophageal mucosa. Stomach: Direct and retroflex views obtained. No blood seen. A small white based ulcer without stigmata of recent bleeding was seen on the inferior wall of the antrum. Retroflex did reveal a small hiatal hernia. Duodenum: The duodenum was examined to the 3rd portion. Good views were obtained throughout. No blood was seen. No ulcers were seen. The stomach and duodenum were carefully inspected 4 times. Recommendations; 1- Supportive care 2- ok to transfer to recovery area then discharge per protocol 3- Patient with white based ulcer, recommendation is to discharge on PPI standard dose twice per day for 6 to 8 weeks. Please have comp field case manager assist patient in obtaining his medication. Last admission he was sent home but could not afford his medication. Patient advised to use OTC omeprazole or equivalent for 8 weeks twice per day. 4- high-fiber diet 5- EGD as needed 6- Avoid NSAIDS 7- follow up in our office as outpatient in 2-4 weeks. Surgeon: Jorge Moran Pathology: none sent Condition: stable Disposition: floor
[2018-04-24 14:02] LABS: Baso # (Auto) 0.1 th/mm3 (0.0-0.2); Baso % (Auto) 0.9 % (0.0-2.0); Eos # (Auto) 0.3 th/mm3 (0.0-0.4); Eos % (Auto) 3.8 % (0.0-4.0); Hematocrit 24.8 % (39.0-51.0); Hemoglobin 8.8 gm/dL (13.0-17.0); Lymph # (Auto) 1.4 th/mm3 (1.0-4.8); Lymph % (Auto) 20.2 % (9.0-44.0); Mean Corpuscular HGB Conc 35.3 % (32.0-36.0); Mean Corpuscular Hemoglobin 34.4 pg (27.0-34.0); Mean Corpuscular Volume 97.4 fL (80.0-100.0); Mean Platelet Volume 8.7 fL (7.0-11.0); Mono # (Auto) 0.4 th/mm3 (0.0-0.9); Mono % (Auto) 6.1 % (0.0-8.0); Neut # (Auto) 4.9 th/mm3 (1.8-7.7); Platelet Count 302 th/mm3 (150-450); Red Blood Count 2.55 mil/mm3 (4.50-5.90); Red Cell Distribution Width 16.3 % (11.6-17.2); White Blood Count 7.1 th/mm3 (4.0-11.0)
--- NOTE | 2018-04-24 15:37 | P.DS ---
DS: Providers Date of admission: 04/23/18 17:19 Primary care physician: No Primary Care Physician Consults: 04/23/18 17:22 Consult to Gastroenterology Routine Consulting Provider: Jorge Moran Patient known to:: Josselyn Avelinatravon Reason for Consultation: recent GI bleed with EGD. Presents with recurrent GI bleed Notified:: Service Spoke with:: ALFONZO Date Notified:: 04/23/18 Time Notified:: 17:32 Ordering Provider: SILVESTRE Brief History from admission: This is a 58-year-old white male with significant past medical history of previous perforated jejunum with exploratory lap and repair x2, prior alcohol abuse, tobacco abuse. Recently admitted on April 15 with GI bleed, H&H did not drop. He underwent EGD on 04/15/2018 which showed Surgical changes involving duodenum and stomach multiple clean base ulcers in duodenum second portion -three, one had a visible vessel, possible source of bleeding -s/p cautery using balltip , epinephrine injected 1: 10.000 - 2 cc, 3 clips applied - deployment malfunctioned -not attached to ulcer site, no active bleeding, gastritis antrum-biopsy Retroflexed views revealed a hiatal hernia. He was discharged home in stable condition with instructions to continue PPI and follow for repeat EGD in 6 weeks. Pt. states he did not fill prescriptions as he doesn't work, nor he has insurance. He has felt lightheaded, no CP, no SOB. Has noted dark stools. Complains of mild abdominal discomfort, has a good appetite without any nausea and vomiting. Patient indicates that today he was walking to the trash can approximately 20 feet when he became lightheaded and passed out hitting his right shoulder. He did not hit his head, no neck pain. Patient was evaluated in the emergency room, laboratory workup was completed. CBC remarkable for hemoglobin of 6.7, hematocrit of 20.2. Hemoccult was positive. X-ray of the shoulder was done, no acute findings. Denies any fever, no chills. Prior history of alcohol abuse, patient denies any excessive use. Smokes 1 pack a day. Denies NSAID use. Patient was given tramadol and Norflex for pain. He has been started on Protonix drip. 2 units of blood have been ordered. Patient is admitted for further evaluation and treatment. DS: Diagnosis Discharge Diagnosis (1) Acute GI bleeding: Status: Acute DS: Summary 58-year-old male with a history of surgical resection of portion of jejunum due to perforation presented to the ER 2 weeks ago with upper GI bleed. Scope at that time saw varicosities and bleeding ulceration which was treated with laser. Patient was given prescription for proton pump inhibitor but when he left the hospital and went to fill the medication they were too expensive to afford due to his lack of insurance. Over the last week he has had increasing lightheadedness, associated with dark tarry stools daily. He put this off but yesterday had a syncopal episode and fell onto his right shoulder. Series revealed no fracture of the right shoulder. He was rescoped and a wide-based ulcer was seen. He was recommended to take 8 weeks of a proton pump inhibitor. I will be sending him home with affordable options, splaying the omeprazole is the preferred affordable option. Ranitidine he should take following the completion of his omeprazole. Gastroenterology has recommended a 6-week follow- up for repeat EGD. Hemoglobin has remained stable after to recheck since yesterday, reading between 8.1 and 8.8 trending upward. Time Spent with Patient Total time spent providing and/or coordinating discharge services: 15 min Less than 30 minutes Quality: VTE Deep Vein Thrombosis/Pulmonary Embolism Present on Admission: No Results Labs on day of discharge: Labs from last 24 hours 04/24/18 04/24/18 04/24/18 13:30 06:48 00:12 WBC 7.1 6.5 RBC 2.55 L 2.47 L Hgb 8.8 L 8.3 L 8.1 L Hct 24.8 L 23.8 L 23.8 L MCV 97.4 96.1 D MCH 34.4 H 33.7 MCHC 35.3 35.1 RDW 16.3 15.9 Plt Count 302 304 MPV 8.7 8.7 Prelim Diff (Auto) Neut % (Auto) 69.0 Lymph % (Auto) 20.2 Dodge % (Auto) 6.1 Eos % (Auto) 3.8 Baso % (Auto) 0.9 Neut # (Auto) 4.9 Lymph # (Auto) 1.4 Dodge # (Auto) 0.4 Eos # (Auto) 0.3 Baso # (Auto) 0.1 WBC Differential . Differential Comment Auto diff final PT INR APTT Sodium Potassium Chloride Carbon Dioxide Anion Gap BUN Creatinine Estimated GFR Random Glucose Calcium Magnesium Total Bilirubin AST ALT Alkaline Phosphatase Troponin I Total Protein Albumin Blood Type Antibody Screen MTS Gel Crossmatch 04/23/18 04/23/18 04/23/18 20:00 16:25 15:54 WBC RBC Hgb Hct MCV MCH MCHC RDW Plt Count MPV Prelim Diff (Auto) Neut % (Auto) Lymph % (Auto) Dodge % (Auto) Eos % (Auto) Baso % (Auto) Neut # (Auto) Lymph # (Auto) Dodge # (Auto) Eos # (Auto) Baso # (Auto) WBC Differential Differential Comment PT 11.8 H INR 1.2 APTT 28.8 Sodium Potassium Chloride Carbon Dioxide Anion Gap BUN Creatinine Estimated GFR Random Glucose Calcium Magnesium Total Bilirubin AST ALT Alkaline Phosphatase Troponin I Total Protein Albumin Blood Type O Positive Antibody Screen Negative MTS Gel Crossmatch See Detail 04/23/18 04/23/18 15:54 15:54 WBC 8.7 RBC 1.93 L Hgb 6.7 L* Hct 20.2 L* MCV 104.6 H MCH 35.0 H MCHC 33.5 RDW 14.3 Plt Count 353 D MPV 8.9 Prelim Diff (Auto) Slide review pending Neut % (Auto) 71.5 H Lymph % (Auto) 19.6 Dodge % (Auto) 5.5 Eos % (Auto) 2.5 Baso % (Auto) 0.9 Neut # (Auto) 6.3 Lymph # (Auto) 1.7 Dodge # (Auto) 0.5 Eos # (Auto) 0.2 Baso # (Auto) 0.1 WBC Differential . Differential Comment Auto diff final PT INR APTT Sodium 138 Potassium 4.0 Chloride 107 Carbon Dioxide 24.8 Anion Gap 6 BUN 14 Creatinine 0.84 Estimated GFR Greater than 89 Random Glucose 84 Calcium 7.8 L Magnesium 2.0 Total Bilirubin 0.3 AST 57 H ALT 65 Alkaline Phosphatase 74 Troponin I Less than 0.02 L Total Protein 6.3 L Albumin 3.2 L Blood Type Antibody Screen MTS Gel Crossmatch Impressions ITS Impressions Shoulder X-Ray 04/23/18 16:12 CONCLUSION: No definite fracture is identified for technique. Discharge Plan Discharge Disposition Patient Disposition: 01 Discharge Home Discharge Condition Condition: Stable Discharge Order Discharge Orders: Discharge Order (Routine); Ordered 04/24/18 Ordered By: Con Bazan Discharge Details Anticipated Discharge Date: 04/24/18 Physicians Team Primary Care Provider: [facility] Attending Provider: Con Bazan Other Providers: Jorge Moran Rxs /Orders / Referrals /Forms Prescriptions: New omeprazole 40 mg capsule,delayed release(DR/EC) 40 mg PO DAILY 56 Days Qty: 56 RF: 0 ranitidine HCl 150 mg capsule 150 mg PO BID Qty: 60 RF: 2 No Action No Known Home Medications RF: 0 Referrals: Jorge Moran MD [Physician] - 06/12/18 9:00 am (Call to arrange for follow up endoscopy) [facility] [Primary Care Provider] - See Instructions Discharge Interventions Interventions: Discharge Planning - Case Management Last Done: 04/24/18 12:44 Status ED Status: Left Department
--- NOTE | 2018-04-24 16:10 | ECG ---
Date Performed: 04/23/2018 Time Performed: 16:06:19 PTAGE: 58 years EKG: Sinus rhythm WITH OCCASIONAL SUPRAVENTRICULAR PREMATURE COMPLEXES When compared to previous tracing, sinus rate i s slower. BORDERLINE ECG PREVIOUS TRACING : 04/15/2018 10.04 DOCTOR: Wilson Lebron Interpretating Date/Time 04/24/2018 16:08:47
== END 2018-04-24 17:02 | disposition home or self-care (01) ==
LOC: NEPC 14:35 → NEDA 17:19 → N07 19:02
PROVIDERS: ADMIT Family Medicine; ATTEND Family Medicine
PROC: PANENDO (2018-04-24 10:58)